=== PATIENT | male | born 1960 | race Caucasian/White ===

== ENCOUNTER 2019-09-22 11:43 | Emergency (ER) | payer OTHER ==
--- NOTE | 2019-09-22 12:17 | RAD ---
Chest one view HISTORY: Chest pain. FINDINGS: Cardiac silhouette and pulmonary vasculature are unremarkable. Mediastinum is midline. Mild linear atelectasis over the left base. No lobar consolidation or evidence of pneumothorax. shelter monitor leads overlie the chest. IMPRESSION : No active cardiopulmonary abnormalities are demonstrated.
[2019-09-22 12:26] LABS: #Eosinphils 0.1 thou/uL (0.0-0.7); #Lymphocytes 2.1 thou/uL (1.20-3.40); #Monocytes 0.4 thou/uL (0.11-0.59); #Neutrophils 4.7 thou/uL (1.40-6.50); %Basophils 0.3 % (0.0-1.0); %Eosinophils 0.8 % (0.0-10.0); %Lymphocytes 28.9 % (21.0-51.0); %Monocytes 5.7 % (0.0-10.0); %Neutrophils 64.3 % (42.0-75.0); Hemoglobin 14.8 g/dL (14.0-18.0); Mean Corpuscular HGB CONC 34.7 g/dL (32.0-36.0); Mean Corpuscular Volume 89.1 fL (78.0-98.0); Mean Platelet Volume 7.5 fL (7.4-10.4); Platelet Count 166 thou/uL (130-400); RBC Distribution Width 11.7 % (11.5-14.5); Red Blood Cell (RBC) Count 4.78 mill/uL (4.70-6.10); White Blood Cell (WBC) Count 7.3 thou/uL (4.8-10.8)
[2019-09-22 12:49] LABS: ALT (SGPT) 9 U/L (8-55); AST (SGOT) 14 U/L (5-34); Albumin 4.1 g/dL (3.5-5.0); Alkaline Phosphatase 63 U/L (40-110); Anion Gap 12 mmol/L (10-20); BUN (Urea Nitrogen) 13 mg/dL (8.4-25.7); Bilirubin, Total 0.8 mg/dL (0.2-1.2); CK (CPK) 59 U/L (30-200); Calc. Creatinine Clearance 0 mL/min (70-130); Calcium 8.6 mg/dL (7.8-10.44); Carbon Dioxide 29 mmol/L (22-29); Chloride 102 mmol/L (98-107); Estimated GFR-MDRD 88; Glucose 99 mg/dL (70-105); Lipase 122 U/L (8-78); Protein, Total 6.1 g/dL (6.0-8.3); Sodium 139 mmol/L (136-145)
--- NOTE | 2019-09-25 14:08 | EKG ---
Test Reason : Blood Pressure : / mmHG Vent. Rate : 057 BPM Atrial Rate : 057 BPM P-R Int : 164 ms QRS Dur : 090 ms QT Int : 434 ms P-R-T Axes : -28 084 100 degrees QTc Int : 422 ms Sinus bradycardia Nonspecific T wave abnormality Abnormal ECG Confirmed by VENUS CAMARA ([id number]), newspaper managing editor PAUL HORNER ([id number]) on 09/25/2019 2:08:11 PM Referred By: Confirmed By:VENUS Colón
== END 2019-09-22 16:20 ==
LOC: ERS 11:43
DX: R07.9 Chest pain, unspecified (principal); J45.909 Unspecified asthma, uncomplicated; E03.9 Hypothyroidism, unspecified; I25.2 Old myocardial infarction; I10 Essential (primary) hypertension; F20.9 Schizophrenia, unspecified; F31.9 Bipolar disorder, unspecified; Z87.891 Personal history of nicotine dependence; Z79.82 Long term (current) use of aspirin; Z79.899 Other long term (current) drug therapy
CPT/HCPCS: 36415; 71045; 80053; 82550; 83690; 84484; 85025; 93005; 94760; 96360

== ENCOUNTER 2019-10-10 15:04 | Emergency (ER) | payer OTHER ==
[2019-10-10 16:14] LABS: #Lymphocytes 1.6 thou/uL (1.20-3.40); #Monocytes 0.6 thou/uL (0.11-0.59); #Neutrophils 8.7 thou/uL (1.40-6.50); %Basophils 0.4 % (0.0-1.0); %Eosinophils 0.2 % (0.0-10.0); %Lymphocytes 14.3 % (21.0-51.0); %Monocytes 5.4 % (0.0-10.0); %Neutrophils 79.7 % (42.0-75.0); Hemoglobin 14.2 g/dL (14.0-18.0); Mean Corpuscular HGB CONC 32.9 g/dL (32.0-36.0); Mean Corpuscular Hemoglobin 29.6 pg (27.0-31.0); Mean Platelet Volume 7.3 fL (7.4-10.4); Platelet Count 151 thou/uL (130-400); RBC Distribution Width 11.8 % (11.5-14.5); Red Blood Cell (RBC) Count 4.81 mill/uL (4.70-6.10); White Blood Cell (WBC) Count 10.9 thou/uL (4.8-10.8)
[2019-10-10 16:35] LABS: ALT (SGPT) 22 U/L (8-55); AST (SGOT) 20 U/L (5-34); Albumin 3.9 g/dL (3.5-5.0); Alkaline Phosphatase 62 U/L (40-110); Anion Gap 15 mmol/L (10-20); BUN (Urea Nitrogen) 20 mg/dL (8.4-25.7); Bilirubin, Total 0.5 mg/dL (0.2-1.2); Calc. Creatinine Clearance 0 mL/min (70-130); Calcium 9.2 mg/dL (7.8-10.44); Carbon Dioxide 24 mmol/L (22-29); Chloride 101 mmol/L (98-107); Estimated GFR-MDRD 83; Globulin 3.1 g/dL (2.4-3.5); Glucose 102 mg/dL (70-105); Potassium 3.5 mmol/L (3.5-5.1); Sodium 136 mmol/L (136-145)
[2019-10-10] MEDS ORDERED: Sodium Chloride 0.9% 100 ML ONE (16:43)
[2019-10-10] MEDS ORDERED: Cefepime 2 GM VIAL ONE (16:43)
[2019-10-10] MEDS ORDERED: Vancomycin 1 GM/200 ML BAG ONE (16:58)
--- NOTE | 2019-10-10 17:13 | ULT ---
RIGHT LOWER EXTREMITY VENOUS ULTRASOUND: 10/10/19 COMPARISON: None. HISTORY: Right lower extremity pain and edema. TECHNIQUE: Multiplanar gonzalez sale and color Doppler images were obtained in a right lower extremity venous ultras ound. Spectral analysis of the Doppler waveforms were performed. FINDINGS: The right common femoral vein, profunda femoral vein, superficial femoral vein and popliteal vein are normal in appearance without visible thrombus. These vessels demonstrate normal compression, flow an d augmentation. The posterior tibial vein an greater saphenous vein are also patent. IMPRESSION: No evidence of DVT. POS: ED
[2019-10-10 18:09] LABS: Bacteria/HPF None Seen HPF (None Seen); Bilirubin Negative (Negative); Blood, Urine 1+ (Negative); Clarity Clear (Clear); Glucose, Urine (Dipstick) Normal (Negative); Leukocyte Negative Leu/uL (Negative); Nitrite Negative (Negative); Protein, Urine (Dipstick) Negative (Neg-Trace); Squamous Epithelial None Seen HPF (0-3); Urobilinogen Normal mg/dL (Less than 2); WBC/HPF 0-3 HPF (0-3)
[2019-10-10] MEDS ORDERED: Clindamycin/D5W 900 mg/50 ml Premix Bag ONE (18:51)
[2019-10-10] MEDS ORDERED: Acetaminophen 500 MG TAB ONE (23:27)
[2019-10-11] MEDS ORDERED: Terazosin HCl 5 MG CAP PO SCH (21:00)
== END 2019-10-11 01:45 | disposition short-term general hospital (02) ==
LOC: ERS 15:04
DX: A41.9 Sepsis, unspecified organism (principal); L03.115 Cellulitis of right lower limb; I10 Essential (primary) hypertension; I25.2 Old myocardial infarction; F31.9 Bipolar disorder, unspecified; F25.9 Schizoaffective disorder, unspecified; E03.9 Hypothyroidism, unspecified; J45.909 Unspecified asthma, uncomplicated; Z79.82 Long term (current) use of aspirin; Z79.899 Other long term (current) drug therapy; Z87.891 Personal history of nicotine dependence
CPT/HCPCS: 36415; 36416; 80053; 81003; 81015; 83605; 85025; 87040; 87635; 96360; 96361; 96365; 96367; J0692; J3370; J3490; U0003

== ENCOUNTER 2020-01-13 16:50 | Inpatient (IN) | payer OTHER ==
[2020-01-13] MEDS ORDERED: Rocuronium Bromide 10 MG/ML (10ML VIAL) ONE (17:00)
[2020-01-13] MEDS ORDERED: Diltiazem 125 MG/25 ML ONE (17:09)
--- NOTE | 2020-01-13 17:29 | RAD ---
Exam: Chest one view HISTORY:Dyspnea. Chest pain. Status post intubation. Comparison: 09/22/2019 FINDINGS: Cardiac silhouette: Normal Aorta: Unremarkable Pulmonary vessels: Normal Costophrenic angles: Clear LUNGS: No masses or consolidation. Chronic interstitial changes are noted. Lines and tubes: Nasogastric tube extends beyond the diaphragm. Endotracheal tube demonstrates main s tem bronchus intubation. Pneumothorax: None Osseous abnormalities: None IMPRESSION: 1. Right mainstem bronchus intubation. Endotracheal tube should be retracted approximately 3.5 cm.
--- NOTE | 2020-01-13 17:30 | RAD ---
Exam: 1 view abdomen HISTORY: NG tube placement. CPR. FINDINGS: Nonspecific bowel gas pattern. No suspicious densities in the visualized abdomen. Nonspecif ic bowel gas pattern. IMPRESSION: Nonspecific bowel gas pattern. Results of the abdomen radiograph and chest radiograph discussed with Dr. Eli 01/13/2020 at 5:27 PM Code CR
[2020-01-13] MEDS ORDERED: fentaNYL Citrate/PF 2,000 MCG in Sodium Chloride 0.9% 60 ML IV SCH (17:36)
[2020-01-13 17:41] LABS: #Lymphocytes 2.1 thou/uL (1.20-3.40); #Monocytes 0.6 thou/uL (0.11-0.59); #Neutrophils 4.8 thou/uL (1.40-6.50); %Eosinophils 0.7 % (0.0-10.0); %Lymphocytes 27.3 % (21.0-51.0); %Monocytes 7.8 % (0.0-10.0); %Neutrophils 64.3 % (42.0-75.0); Hemoglobin 14.3 g/dL (14.0-18.0); Mean Corpuscular HGB CONC 34.7 g/dL (32.0-36.0); Mean Corpuscular Hemoglobin 30.8 pg (27.0-31.0); Mean Corpuscular Volume 88.7 fL (78.0-98.0); Mean Platelet Volume 7.2 fL (7.4-10.4); Platelet Count 184 thou/uL (130-400); RBC Distribution Width 12.1 % (11.5-14.5); Red Blood Cell (RBC) Count 4.63 mill/uL (4.70-6.10); White Blood Cell (WBC) Count 7.5 thou/uL (4.8-10.8)
[2020-01-13 17:48] LABS: Actual Bicarbonate (HCO3a) 22.8 mEq/L (22-28); Analyzer IN Cardio ER; Base Excess (BEa) -2.6 mEq/L (-2.0 to +3.0); CO2 Tension 41.3 mmHg (35.0-45.0); Calcium, Ionized (arterial) 1.09 mmol/L (1.12-1.30); Carboxyhemoglobin (COHb) 0.3 gm% (0.0-3.0); Hemoglobin (Hb) 14.2 g/dL (14.0-18.0); O2 Tension (PaO2), arterial 88.9 mmHg (80.0-100.0); Potassium - ABG Lab 2.86 mmol/L (3.70-5.30); pH, Arterial 7.36 (7.35-7.45)
[2020-01-13 17:50] LABS: ALV-art Gradient 215.975 (0-20); Puncture Site LRA
[2020-01-13 17:56] LABS: ALT (SGPT) 22 U/L (8-55); AST (SGOT) 21 U/L (5-34); Alkaline Phosphatase 66 U/L (40-110); Anion Gap 16 mmol/L (10-20); BUN (Urea Nitrogen) 12 mg/dL (8.4-25.7); Bilirubin, Total 0.2 mg/dL (0.2-1.2); Calc. Creatinine Clearance 0 mL/min (70-130); Calcium 8.5 mg/dL (7.8-10.44); Carbon Dioxide 24 mmol/L (22-29); Chloride 103 mmol/L (98-107); Estimated GFR-MDRD 73; Globulin 2.6 g/dL (2.4-3.5); Glucose 205 mg/dL (70-105); Lipase 21 U/L (8-78); Protein, Total 6.6 g/dL (6.0-8.3); Sodium 140 mmol/L (136-145)
[2020-01-13 18:05] LABS: Potassium 2.8 mmol/L (3.5-5.1)
[2020-01-13 18:14] LABS: CKMB 3.9 ng/mL (0-6.6)
[2020-01-13] MEDS ORDERED: Aspirin 300 MG Suppository ONE ×2 (18:31→18:36)
[2020-01-13] MEDS ORDERED: Potassium Chloride 40 MEQ in Sodium Chloride 0.9% 250 ML 250 ML IVPB SCH (18:45)
--- NOTE | 2020-01-13 19:19 | RAD ---
Exam: Chest one view HISTORY:Repositioning of endotracheal tube Comparison: 01/13/2020 at 5:16 PM FINDINGS: Lines and tubes: Interval retraction of the endotracheal tube now terminates at the level of clavicle s. Otherwise, no change. IMPRESSION: Interval repositioning of endotracheal tube.
[2020-01-13 19:47] LABS: SARS-CoV-2 NAA Rapid Test DETECTED (NotDetected)
[2020-01-13] MEDS ORDERED: Acetaminophen 650 MG Suppository PR PRN (20:11)
[2020-01-13] MEDS ORDERED: Propofol 1,000 MG/100 ML VIAL IV ONE (20:18)
--- NOTE | 2020-01-13 20:18 | PDOC.HHP ---
Hospitalist HPI - History of Present Illness s/p cardiac arrest History of Present Illness: most of the history obtain from emr and ed records, during my evaluation patient was sedated and intubated, no family members were present at the moment of my evaluation. Case of an 59y/o male with pmnhx of bronchial asthma, bipolar, depression schizoaffective disorder, hepc, hypothyroidism, L side hearing deficit, htn and cad who comes to hospital from nursing home after an episode of chest pain with subsequent cardiac arrest. EMS reports that they received a report that the patient stated that he had severe chest pain, and then passed out. There is a report that CPR was performed, and that 3 rounds of CPR were performed. The report continues that spontaneous circulation was regained. EMS reports what appears to be A. fib with RVR in route. They state that they did try to electrically cardiovert the patient with 100 J, but that this did not produce any results. at the ED Cardizem was started and during my evaluation pt was with adequate stable vital signs, with nsr in the 90s and sedated Hospitalist ROS - Review of Systems ROS unobtainable: due to mental status Hospitalist History - Past Surgical History Other Surgical History: stent - Family History Other Family History: unable to asses - Social History Other Social History: unable to asses - Exam General - other findings: sedated on MV Eye: PERRL, anicteric sclera ENT: normocephalic atraumatic, no oropharyngeal lesions Neck: supple, symmetric, no JVD Heart: RRR, no murmur, no gallops Respiratory: CTAB, no wheezes, no rales Gastrointestinal: soft, non-tender, non-distended Extremities: no cyanosis, no clubbing, no edema Skin: normal turgor, no lesions, no rashes Neurological: cranial nerve grossly intact Musculoskeletal: normal tone Psychiatric - other findings: sedated Hospitalist Results - Labs Result Diagrams: 01/13/20 17:00 01/13/20 17:00 Lab results: WBC 7.5 thou/uL (4.8-10.8) 01/13/20 17:00 Hgb 14.3 g/dL (14.0-18.0) 01/13/20 17:00 Hct 41.1 % (42.0-52.0) L 01/13/20 17:00 MCV 88.7 fL (78.0-98.0) 01/13/20 17:00 Plt Count 184 thou/uL (130-400) 01/13/20 17:00 Neutrophils % 64.3 % (42.0-75.0) 01/13/20 17:00 ABG pH 7.36 (7.35-7.45) 01/13/20 17:45 ABG pCO2 41.3 mmHg (35.0-45.0) 01/13/20 17:45 ABG pO2 88.9 mmHg (80.0-100.0) 01/13/20 17:45 Sodium 140 mmol/L (136-145) 01/13/20 17:00 Potassium 2.8 mmol/L (3.5-5.1) L* 01/13/20 17:00 Chloride 103 mmol/L (98-107) 01/13/20 17:00 Carbon Dioxide 24 mmol/L (22-29) 01/13/20 17:00 BUN 12 mg/dL (8.4-25.7) 01/13/20 17:00 Creatinine 1.05 mg/dL (0.7-1.3) 01/13/20 17:00 Glucose 205 mg/dL (70-105) H 01/13/20 17:00 Lactic Acid 4.1 mmol/L (0.5-2.2) H* 01/13/20 18:30 Calcium 8.5 mg/dL (7.8-10.44) 01/13/20 17:00 Total Bilirubin 0.2 mg/dL (0.2-1.2) 01/13/20 17:00 AST 21 U/L (5-34) 01/13/20 17:00 ALT 22 U/L (8-55) 01/13/20 17:00 Alkaline Phosphatase 66 U/L (40-110) 01/13/20 17:00 CK-MB (CK-2) 3.9 ng/mL (0-6.6) 01/13/20 17:00 Troponin I 0.029 ng/mL (< 0.028) H 01/13/20 17:00 Serum Total Protein 6.6 g/dL (6.0-8.3) 01/13/20 17:00 Albumin 4.0 g/dL (3.5-5.0) 01/13/20 17:00 Lipase 21 U/L (8-78) 01/13/20 17:00 Hospitalist H&P A/P - Problem (1) Sudden cardiac arrest Code(s): I46.9 - CARDIAC ARREST, CAUSE UNSPECIFIED Status: Acute (2) Respiratory failure requiring intubation Code(s): J96.90 - RESPIRATORY FAILURE, UNSP, UNSP W HYPOXIA OR HYPERCAPNIA Status: Acute (3) COVID-19 Code(s): U07.1 - COVID-19 Status: Acute (4) Atrial fibrillation with RVR Code(s): I48.91 - UNSPECIFIED ATRIAL FIBRILLATION Status: Acute (5) Hypokalemia Code(s): E87.6 - HYPOKALEMIA Status: Acute (6) Hypothyroidism Code(s): E03.9 - HYPOTHYROIDISM, UNSPECIFIED Status: Acute (7) HTN (hypertension) Code(s): I10 - ESSENTIAL (PRIMARY) HYPERTENSION Status: Acute (8) CAD (coronary artery disease) Code(s): I25.10 - ATHSCL HEART DISEASE OF [place] CORONARY ARTERY W/O ANG PCTRS Status: Acute - Plan Plan: 59y/o male with the stated pmhx who comes after cardiac arrest, covid + s/p cardiac arrest - icu admit - serial troponins, elevated first one i expect this to continue to increase - cardiology consult - cardiac monitoring - 2d echo covid 19 - positive test - on MV - on rocephin + azithromycin - dexamethazone 6 ivd - f/u inflammation markers respiratory failure requiring intubation - asset protection detective consulted - f/u abgs - wean as tolerated - sedation protocol atrial fibrillation in rvr - s/p cardioversion x1 - on cardizem drio - followe serial troponins - on cardizem drip - tsh - full AC w lovenox hypokalemia - replace electrolites - check mg
[2020-01-13] MEDS ORDERED: Sodium Chloride 0.9% 1,000 ML IV SCH ×2 (20:33→23:59)
[2020-01-13] MEDS ORDERED: Fentanyl BOLUS 250 ML IVPB PRN (20:34)
[2020-01-13] MEDS ORDERED: DISCONTINUE PREVIOUS NARCOTIC PAIN MEDICATIONS AND BENZODIAZEPINES FS SCH (20:34)
[2020-01-13] MEDS ORDERED: Propofol BOLUS 1,000 MG/100 ML VIAL IV PRN (20:34)
[2020-01-13 21:29] LABS: Troponin I 0.208 ng/mL (< 0.028)
[2020-01-13] MEDS: Sodium Chloride 0.9% 1,000 ML IV SCH (21:40)
[2020-01-13] MEDS: cefTRIAXone\\ROCEPHIN 2 GM in Sodium Chloride 0.9% 100 ML IVPB SCH (21:59)
[2020-01-13] MEDS: Famotidine/PF 20 mg/2ml Vial SLOW IVP SCH (21:59)
[2020-01-13 22:00] LABS: Lactic Acid 5.8 mmol/L (0.5-2.2)
[2020-01-13] MEDS ORDERED: Diltiazem HCl 125 MG, Admixture Fee 1 EACH in Sodium Chloride 0.9% 100 ML IVPB SCH (22:00)
[2020-01-13] MEDS: Azithromycin 500 MG in Sodium Chloride 0.9% 250 ML 250 ML IVPB SCH (22:00)
[2020-01-13] MEDS: Lorazepam 2 MG/ML VIAL SLOW IVP PRN (23:16)
[2020-01-13 23:53] LABS: Troponin I 0.288 ng/mL (< 0.028)
[2020-01-14 04:03] LABS: CRP (Inflammatory) 1.4 mg/dL (= or < 0.5); Magnesium 1.6 mg/dL (1.6-2.6)
[2020-01-14 04:07] LABS: Band 7 % (5-11); Hemoglobin 12.5 g/dL (14.0-18.0); Lymphocytes 17 % (21-51); MDiff Complete? YES; Mean Corpuscular Hemoglobin 30.3 pg (27.0-31.0); Mean Corpuscular Volume 89.2 fL (78.0-98.0); Mean Platelet Volume 7.1 fL (7.4-10.4); Monocytes 9 % (0-10); Neutrophil 67 % (42-75); Platelet Count 211 thou/uL (130-400); Platelet Morphology Comment Appears Adequate; Red Blood Cell (RBC) Count 4.13 mill/uL (4.70-6.10); White Blood Cell (WBC) Count 8.7 thou/uL (4.8-10.8)
[2020-01-14 04:08] LABS: ALT (SGPT) 19 U/L (8-55); AST (SGOT) 17 U/L (5-34); Albumin 3.4 g/dL (3.5-5.0); Alkaline Phosphatase 54 U/L (40-110); Anion Gap 13 mmol/L (10-20); BUN (Urea Nitrogen) 14 mg/dL (8.4-25.7); Bilirubin, Total 0.4 mg/dL (0.2-1.2); Calc. Creatinine Clearance 140 mL/min (70-130); Calcium 7.6 mg/dL (7.8-10.44); Carbon Dioxide 23 mmol/L (22-29); Chloride 111 mmol/L (98-107); Estimated GFR-MDRD Greater than 90; Globulin 2.2 g/dL (2.4-3.5); Glucose 99 mg/dL (70-105); Potassium 3.7 mmol/L (3.5-5.1); Protein, Total 5.6 g/dL (6.0-8.3); Sodium 143 mmol/L (136-145)
[2020-01-14 06:37] LABS: Lactic Acid 1.1 mmol/L (0.5-2.2)
[2020-01-14] MEDS: Sodium Chloride 0.9% 1,000 ML IV SCH ×2 (08:31→17:51)
[2020-01-14] MEDS: Dexamethasone 4 mg/ml Vial SLOW IVP SCH (08:31)
[2020-01-14] MEDS: Enoxaparin Sodium 100 MG/ML SYRINGE SC SCH ×2 (08:31→21:23)
[2020-01-14] MEDS: Famotidine/PF 20 mg/2ml Vial SLOW IVP SCH ×2 (08:31→21:23)
[2020-01-14 08:57] LABS: Actual Bicarbonate (HCO3a) 22.8 mEq/L (22-28); Base Excess (BEa) -0.7 mEq/L (-2.0 to +3.0); CO2 Tension 34.3 mmHg (35.0-45.0); Calcium, Ionized (arterial) 1.06 mmol/L (1.12-1.30); Carboxyhemoglobin (COHb) 0.1 gm% (0.0-3.0); Hemoglobin (Hb) 12.8 g/dL (14.0-18.0); O2 Tension (PaO2), arterial 97.8 mmHg (80.0-100.0); Potassium - ABG Lab 3.64 mmol/L (3.70-5.30); pH, Arterial 7.44 (7.35-7.45)
[2020-01-14 08:59] LABS: ALV-art Gradient 144.525 (0-20); Puncture Site RBA
[2020-01-14] MEDS ORDERED: Enoxaparin Sodium 40 MG/0.4 ML SYRINGE SC SCH (09:00)
[2020-01-14 09:39] LABS: Bilirubin Moderate (Negative); Blood, Urine Negative (Negative); Glucose, Urine (Dipstick) Negative (Negative); Ketone, Urine Trace mg/dL (Negative); Leukocyte Negative (Negative); Nitrite Negative (Negative); Protein, Urine (Dipstick) 30 mg/dL (Neg-Trace); Specific Gravity, Urine 1.025 (1.005-1.030)
[2020-01-14 09:45] LABS: Clarity Slightly Cloudy (Clear)
[2020-01-14 09:49] LABS: Bacteria/HPF 1+ HPF (None Seen); Squamous Epithelial 0-3 HPF (0-3)
--- NOTE | 2020-01-14 15:19 | CON ---
DATE OF CONSULTATION: 01/14/2020 REASON FOR CONSULTATION: Cardiac arrest. HISTORY OF PRESENT ILLNESS: Mr. Clark is a 59-year-old white gentleman, who comes to the hospital for a cardiac arrest. He is an inmate and apparently was in [facility], complained of an episode of chest pain and eventually had a cardiac arrest. EMS was called and CPR was performed, about 3 rounds of CPR and regained spontaneous circulation. He was apparently in atrial fibrillation with RVR when he was brought in and was given a cardioversion at 100 joules without any success. On my evaluation, he remained sedated and intubated. Unable to provide any history. He is in sinus rhythm. PAST MEDICAL HISTORY: 1. Bronchial asthma. 2. Hypothyroidism. 3. Left hearing deficit. 4. Hepatitis C. 5. Hypertension. 6. Bipolar disorder. 7. Schizoaffective disorder. 8. Depression. PAST SURGICAL HISTORY: 1. Bilateral ear surgeries. 2. History of cardiac stent, unknown details for this. OUTPATIENT MEDICATIONS: 1. Diphenhydramine. 2. Venlafaxine 75 mg a day. 3. Terazosin 10 mg at bedtime. 4. Omeprazole 20 mg a day. 5. Naproxen 500 mg b.i.d. 6. Metoprolol succinate 25 mg b.i.d. 7. Loratadine. 8. Levothyroxine 50 mcg a day. 9. Lanolin oil. 10. Haldol 5 mg b.i.d. 11. Flovent 110 mcg one puff inhalation b.i.d. 12. Aspirin 81 a day. 13. Albuterol inhaler p.r.n. ALLERGIES: NO KNOWN DRUG ALLERGIES. SOCIAL HISTORY: Former drug user. Uses methamphetamines and prescription medications. Alcohol every day. Former tobacco user. REVIEW OF SYSTEMS: Unobtainable as the patient is sedated and intubated. PHYSICAL EXAMINATION: VITAL SIGNS: Temperature 99.8, pulse 69, respiratory rate 10, saturating 100% on 40% FiO2, blood pressure 103/72. GENERAL: Sedated, intubated. LUNGS: Clear to auscultation. CARDIOVASCULAR: Regular rate. No murmurs. ABDOMEN: Soft. EXTREMITIES: No edema. LABORATORY DATA: Laboratory work was reviewed. White count of 7.5, hemoglobin of 14.3 down to 12.5, hematocrit of 41, platelet count of 184. Coags; D-dimer was 1.73. ABG was reviewed. Chemistries were reviewed. LDH was 240. CRP was 1.4. BNP was 70. Albumin of 3.4. Troponin has been indeterminate x3 of 0.02, 0.20, and 0.28. UA showed 30 protein, trace ketones, 1+ bacteria, and COVID-19 PCR was positive. Chest x-ray was reviewed. ASSESSMENT: 1. Oah-xj-ctanlmxn cardiac arrest. 2. Chest pain just before [id number] arrest. 3. History of stenting, unclear where the stent is. This could be any type of stenting. It could be cardiac stenting, biliary stenting. It could be renal stenting, it could be carotid stenting. It is unclear at this point. I would have to assume that it is a coronary stent; however, this is difficult to say, we will try to get records. 4. COVID-19 acute infection. PLAN: 1. His cardiac arrest could have been related to a coronary event; however, I would expect his troponin to be a lot higher if that would be the case. Pulmonary embolism is a concern with COVID-19 as well as an elevated D-dimer. This brings the possibility of a PEA arrest from an acute PE that would chest pain. He is currently getting full dose Lovenox. We will continue for now to minimize infection. We would hold off on CT angio at this time. If we need to do it in the future, we will certainly do so. 2. We will get an echocardiogram to assess LV function and valvular structures. 3. We will otherwise continue supportive care. 4. Neurologic recovery is going to dictate the aggressiveness of our care. Thank you for letting us participate in the care of your patient. 45 minutes of critical care time. Job ID: [id number]
--- NOTE | 2020-01-14 16:42 | CON ---
DATE OF CONSULTATION: 01/14/2020 HISTORY OF PRESENT ILLNESS: Blayne Clark is a 59-year-old gentleman from the [facility], who presented last night with cardiac arrest. He was intubated on the vent. Prolonged CPR was done as per the notes. He has been in the hospital before, at least in the ER. This morning he is in the ICU intubated on the vent, sedation on-board. When I went to see him, he was awake and responsive. Denies any pain or discomfort. The notes from the CPR, three rounds of CPR performed, spontaneous circulation was gained, apparently was in atrial fibrillation with RVR and tried to convert him with 100 joules. PAST MEDICAL HISTORY: Apparently pertinent for hypothyroidism, asthma, hepatitis C, previous myocardial infarction, previous hypertension, previous surgery for his ears, previous cardiac stent. He is bipolar, has depression, and is schizophrenic. He is a previous substance abuser and a drinker, tobacco abuse. MEDICATIONS: His medicine at this time from the [facility] system includes; 1. Benadryl. 2. Venlafaxine 75. 3. Terazosin 10. 4. Omeprazole 20. 5. Naprosyn. 6. Toprol 25. 7. Loratadine. 8. Synthroid 50. 9. Haldol. 10. Flovent. Presently on; 1. Ceftriaxone. 2. Cardizem. 3. Lovenox. REVIEW OF SYSTEMS: Unobtainable. PHYSICAL EXAMINATION: GENERAL: He is awake and responsive, moves all 4 extremities. VITAL SIGNS: Blood pressure 89/64, pulse 72, saturations 100%, and temperature 98. CHEST: Reveals no wheezing and no crackles. CARDIAC: Normal S1 and S2. No gallops. ABDOMEN: No masses. LABORATORY DATA: White count 8000, H and H 12 and 36, and platelet count 211. A pO2 of 97, pCO2 of 34%, pH of 7.44, on a rate of 20. His lytes are normal. C-reactive 1.4. BNP is normal. X-ray is clear. Rapid serology,which surprisingly was positive. He had one done four days ago, which was apparently negative. IMPRESSION: Status post cardiopulmonary arrest secondary to supraventricular tachycardia, known coronary disease, known bipolar disorder, hypothyroidism. PLAN: Input from Cardiology. More than likely, we will wean and extubate in the next 24 to 48 hours. CRITICAL CARE TIME: This was 45-minute critical care time. Job ID: [id number]
[2020-01-14] MEDS: Lorazepam 2 MG/ML VIAL SLOW IVP PRN ×3 (18:30→22:50)
[2020-01-14] MEDS: cefTRIAXone\\ROCEPHIN 2 GM in Sodium Chloride 0.9% 100 ML IVPB SCH (21:22)
[2020-01-14] MEDS: Azithromycin 500 MG in Sodium Chloride 0.9% 250 ML 250 ML IVPB SCH (21:23)
[2020-01-14] MEDS: Propofol 1,000 MG/100 ML VIAL IV PRN (21:23)
[2020-01-15] MEDS: Lorazepam 2 MG/ML VIAL SLOW IVP PRN ×5 (02:50→16:55)
[2020-01-15] MEDS: Sodium Chloride 0.9% 1,000 ML IV SCH ×3 (03:32→22:38)
[2020-01-15] MEDS: Propofol 1,000 MG/100 ML VIAL IV PRN ×4 (03:32→22:38)
[2020-01-15] MEDS: Morphine 2 MG/ML VIAL SLOW IVP PRN (04:12)
[2020-01-15] MEDS: Dexamethasone 4 mg/ml Vial SLOW IVP SCH (08:03)
[2020-01-15] MEDS: Famotidine/PF 20 mg/2ml Vial SLOW IVP SCH ×2 (08:03→19:47)
[2020-01-15] MEDS: Enoxaparin Sodium 100 MG/ML SYRINGE SC SCH ×2 (08:11→19:47)
--- NOTE | 2020-01-15 08:57 | PRG ---
DATE OF SERVICE: 01/15/2020 SUBJECTIVE: Blayne Clark is a 59-year-old gentleman, status post cardiac arrest, prolonged CPR yesterday. When his sedation was withheld he was a little bit more responsive. We are going to turn his sedation off. OBJECTIVE: VITAL SIGNS: His blood pressure is 120/80, pulse 70, respiratory rate 18. CHEST: Decreased breath sounds. No wheezing. CARDIAC: Normal S1, S2. ABDOMEN: No masses. His pO2 is 97, pCO2 is 30%, pH of 7.44. IMPRESSION: Respiratory failure, cardiac arrest, positive coronavirus. PLAN: On sedation, we will consider extubation if neurologically he is intact. Otherwise, continue Decadron, Zithromax, and ceftriaxone. One-half hour of critical time. Job ID: [id number]
--- NOTE | 2020-01-15 09:42 | RAD ---
Chest one view HISTORY: Intubated. Follow-up. COMPARISON: 01/13/2020. FINDINGS: Cardiac silhouette is magnified by projection. Pulmonary vasculature upper limits of normal and accentuated by shallow inspiration. Mediastinum is midline. Lines and tubes appear unchanged in position. No evidence of pneumothorax. Old left rib fractures. quality assurance monitor leads overlie the chest. IMPRESSION : Stable radiographic appearance of the chest.
--- NOTE | 2020-01-15 10:47 | PDOC.CPN ---
- Subjective Date: 01/15/20 Time: 10:45 Interval history: No new issues. He is more responsive without sedation. - Review of Systems ROS unobtainable: due to endotracheal tube - Objective Allergies/Adverse Reactions: Allergies Allergy/AdvReac Type Severity Reaction Status Date / Time No Known Allergies Allergy Verified 01/14/20 03:47 Visit Medications: Current Medications Acetaminophen (Tylenol) 650 mg PO Q4H PRN PRN Reason: Headache/Fever/Mild Pain (1-3) Acetaminophen (Tylenol) 650 mg [place] Q4H PRN PRN Reason: Headache/Fever/Mild Pain (1-3) Dexamethasone (Decadron) 6 mg SLOW IVP DAILY [facility] Last Admin: 01/15/20 08:03 Dose: 6 mg Enoxaparin Sodium (Lovenox) 100 mg SC 0900,2100 [facility] Last Admin: 01/15/20 08:11 Dose: 100 mg Famotidine (Pepcid) 20 mg SLOW IVP Q12HR [facility] Last Admin: 01/15/20 08:03 Dose: 20 mg Azithromycin 500 mg/ Sodium (Chloride) 250 mls @ 250 mls/hr IVPB Q24HR [facility] Last Admin: 01/14/20 21:23 Dose: 250 mls Ceftriaxone Sodium 2 gm/ (Sodium Chloride) 100 mls @ 200 mls/hr IVPB Q24HR [facility] Last Admin: 01/14/20 21:22 Dose: 100 mls Sodium Chloride (Normal Saline 0.9%) 1,000 mls @ 100 mls/hr IV .Q10H [facility] Last Admin: 01/15/20 03:32 Dose: 1,000 mls Fentanyl Citrate (Fentanyl Bolus) 250 mls @ 0 mls/hr IVPB PRN PRN PRN Reason: Breakthrough pain/agitation Stop: 02/12/20 20:34 Diltiazem HCl 125 mg/Miscellaneous Medication 1 each/ Sodium Chloride 125 mls @ 0 mls/hr IVPB INF [facility]; Protocol Last Admin: 01/13/20 22:27 Dose: 125 mls Dexmedetomidine HCl 400 mcg/ (Sodium Chloride) 100 mls @ 0 mls/hr IVPB INF [facility] ; Protocol Last Admin: 01/15/20 09:46 Dose: 100 mls Lorazepam (Ativan) 2 mg SLOW IVP Q1H PRN PRN Reason: Breakthrough agitation Stop: 02/12/20 20:34 Last Admin: 01/15/20 10:42 Dose: 2 mg Morphine Sulfate (Morphine) 2 mg SLOW IVP Q1H PRN PRN Reason: Breakthrough Pain/Agitation Stop: 02/12/20 20:34 Last Admin: 01/15/20 04:12 Dose: 2 mg Discontinue Previous Narcotic Pain Medications And Benzodiazepines 1 each FS .ONE [facility] Stop: 02/12/20 20:34 Propofol (Diprivan) 1,000 mg IV INF PRN; Protocol PRN Reason: TO ACHIEVE GOAL RASS Stop: 02/12/20 20:34 Last Admin: 01/15/20 09:46 Dose: 1,000 mg Propofol (Diprivan Bolus) 20 mg IV Q5MIN PRN PRN Reason: BREAKTHROUGH AGITATION Stop: 02/12/20 20:34 Sodium Chloride (Flush - Normal Saline) 10 ml IVF Q12HR [facility] Last Admin: 01/15/20 09:46 Dose: 10 ml Sodium Chloride (Flush - Normal Saline) 10 ml IVF PRN PRN PRN Reason: Saline Flush Vital Signs & Weight: Vital Signs Pulse Resp 01/15/20 08:34 69 01/15/20 06:00 14 01/15/20 04:00 16 01/15/20 02:56 97 01/15/20 02:00 17 01/15/20 00:00 22 H Admit Weight 214 lb Weight 214 lb 8.156 oz - Physical Exam General: no apparent distress HEENT: normocephaly Neck: supple neck Cardiac: regular rate and rhythm, tachycardia - Labs Result Diagrams: 01/14/20 03:20 01/14/20 03:20 Troponin/CKMB CK-MB (CK-2) 3.9 ng/mL (0-6.6) 01/13/20 17:00 Troponin I 0.288 ng/mL (< 0.028) H 01/13/20 23:17 - Telemetry Sinus rhythms and dysrhythmias: sinus tachycardia - Assessment/Plan Assessment/Plan: 1. Out of hospital cardiac arrest. 2. COVID-19 positive 3. Elevated troponin, mild, indeterminate. Unlikely to be ACS. PLAN: - Continue full anticoagulation for concern of PE. - Continue supportive care. - Awaiting neurologic recovery.
--- NOTE | 2020-01-15 18:51 | PDOC.HOSPP ---
- Subjective Encounter Date: 01/14/20 Encounter Time: 16:00 Subjective: pt not seen today - Objective Vital Signs & Weight: Vital Signs (12 hours) Temp Pulse Resp Pulse Ox 01/15/20 16:00 98.7 F 16 01/15/20 14:48 54 L 01/15/20 14:00 16 01/15/20 12:00 98.5 F 17 01/15/20 11:32 65 01/15/20 10:00 22 H 01/15/20 08:34 69 01/15/20 08:00 98.6 F 15 96 Weight Admit Weight 214 lb Weight 214 lb 8.156 oz Most Recent Monitor Data Heart Rate from ECG 49 NIBP 117/86 NIBP BP-Mean 96 Respiration from ECG 17 SpO2 98 I&O: 01/14/20 01/15/20 01/16/20 06:59 06:59 06:59 Intake Total 3333.1 2988 Output Total 780 1530 1770 Balance 2553.1 1458 -1770 Result Diagrams: 01/14/20 03:20 01/14/20 03:20 Hospitalist ROS - Medication Medications: Active Medications Generic Name Dose Route Start Last Admin Trade Name Freq PRN Reason Stop Dose Admin Dexamethasone 6 mg 01/14/20 09:00 01/15/20 08:03 Decadron SLOW IVP 6 mg DAILY [facility] Administration Enoxaparin Sodium 100 mg 01/14/20 09:00 01/15/20 08:11 Lovenox SC 100 mg 0900,2100 [facility] Administration Famotidine 20 mg 01/13/20 21:00 01/15/20 08:03 Pepcid SLOW IVP 20 mg Q12HR [facility] Administration Azithromycin 500 mg/ Sodium 250 mls @ 250 mls/hr 01/13/20 22:00 01/14/20 21: 23 Chloride IVPB 250 mls Q24HR [facility] Administration Ceftriaxone Sodium 2 gm/ 100 mls @ 200 mls/hr 01/13/20 21:00 01/14/20 21:22 Sodium Chloride IVPB 100 mls Q24HR [facility] Administration Sodium Chloride 1,000 mls @ 100 mls/hr 01/13/20 20:15 01/15/20 13:44 Normal Saline 0.9% IV 1,000 mls .Q10H [facility] Administration Diltiazem HCl 125 mg/ 125 mls @ 0 mls/hr 01/13/20 22:00 01/13/20 22:27 Miscellaneous Medication 1 IVPB 125 mls each/ Sodium Chloride INF [facility] Administration Protocol As Directed Dexmedetomidine HCl 400 mcg/ 100 mls @ 0 mls/hr 01/15/20 09:30 01/15/20 17:16 Sodium Chloride IVPB 100 mls INF [facility] Administration Protocol Per Protocol Lorazepam 2 mg 01/13/20 20:34 01/15/20 16:55 Ativan SLOW IVP 02/12/20 20:34 2 mg Q1H PRN Administration Breakthrough agitation Morphine Sulfate 2 mg 01/13/20 20:34 01/15/20 04:12 Morphine SLOW IVP 02/12/20 20:34 2 mg Q1H PRN Administration Breakthrough Pain/Agitation Propofol 1,000 mg 01/13/20 20:34 01/15/20 09:46 Diprivan IV 02/12/20 20:34 1,000 mg INF PRN Administration TO ACHIEVE GOAL RASS Protocol Sodium Chloride 10 ml 01/13/20 21:00 01/15/20 09:46 Flush - Normal Saline IVF 10 ml Q12HR [facility] Administration Hosp A/P (1) CAD (coronary artery disease) Code(s): I25.10 - ATHSCL HEART DISEASE OF [place] CORONARY ARTERY W/O ANG PCTRS Status: Acute (2) COVID-19 Code(s): U07.1 - COVID-19 Status: Acute (3) HTN (hypertension) Code(s): I10 - ESSENTIAL (PRIMARY) HYPERTENSION Status: Acute (4) Respiratory failure requiring intubation Code(s): J96.90 - RESPIRATORY FAILURE, UNSP, UNSP W HYPOXIA OR HYPERCAPNIA Status: Acute (5) Sudden cardiac arrest Code(s): I46.9 - CARDIAC ARREST, CAUSE UNSPECIFIED Status: Acute (6) Atrial fibrillation with RVR Code(s): I48.91 - UNSPECIFIED ATRIAL FIBRILLATION Status: Acute - Plan will continue AC. cardiology consulted. pt on steroids. pt was seen today by pulmonary
--- NOTE | 2020-01-15 19:03 | PDOC.HOSPP ---
- Subjective Encounter Date: 01/15/20 Encounter Time: 15:00 Subjective: pt intubated - Objective Vital Signs & Weight: Vital Signs (12 hours) Temp Pulse Resp Pulse Ox 01/15/20 16:00 98.7 F 16 01/15/20 14:48 54 L 01/15/20 14:00 16 01/15/20 12:00 98.5 F 17 01/15/20 11:32 65 01/15/20 10:00 22 H 01/15/20 08:34 69 01/15/20 08:00 98.6 F 15 96 Weight Admit Weight 214 lb Weight 214 lb 8.156 oz Most Recent Monitor Data Heart Rate from ECG 49 NIBP 117/86 NIBP BP-Mean 96 Respiration from ECG 17 SpO2 98 I&O: 01/14/20 01/15/20 01/16/20 06:59 06:59 06:59 Intake Total 3333.1 2988 1471 Output Total 780 1530 1830 Balance 2553.1 1458 -359 Result Diagrams: 01/14/20 03:20 01/14/20 03:20 Hospitalist ROS - Review of Systems Other: intubated - Medication Medications: Active Medications Generic Name Dose Route Start Last Admin Trade Name Freq PRN Reason Stop Dose Admin Dexamethasone 6 mg 01/14/20 09:00 01/15/20 08:03 Decadron SLOW IVP 6 mg DAILY MAYRA Administration Enoxaparin Sodium 100 mg 01/14/20 09:00 01/15/20 08:11 Lovenox SC 100 mg 0900,2100 MAYRA Administration Famotidine 20 mg 01/13/20 21:00 01/15/20 08:03 Pepcid SLOW IVP 20 mg Q12HR MAYRA Administration Azithromycin 500 mg/ Sodium 250 mls @ 250 mls/hr 01/13/20 22:00 01/14/20 21: 23 Chloride IVPB 250 mls Q24HR MAYRA Administration Ceftriaxone Sodium 2 gm/ 100 mls @ 200 mls/hr 01/13/20 21:00 01/14/20 21:22 Sodium Chloride IVPB 100 mls Q24HR MAYRA Administration Sodium Chloride 1,000 mls @ 100 mls/hr 01/13/20 20:15 01/15/20 13:44 Normal Saline 0.9% IV 1,000 mls .Q10H MAYRA Administration Diltiazem HCl 125 mg/ 125 mls @ 0 mls/hr 01/13/20 22:00 01/13/20 22:27 Miscellaneous Medication 1 IVPB 125 mls each/ Sodium Chloride INF MAYRA Administration Protocol As Directed Dexmedetomidine HCl 400 mcg/ 100 mls @ 0 mls/hr 01/15/20 09:30 01/15/20 17:16 Sodium Chloride IVPB 100 mls INF MAYRA Administration Protocol Per Protocol Lorazepam 2 mg 01/13/20 20:34 01/15/20 16:55 Ativan SLOW IVP 02/12/20 20:34 2 mg Q1H PRN Administration Breakthrough agitation Morphine Sulfate 2 mg 01/13/20 20:34 01/15/20 04:12 Morphine SLOW IVP 02/12/20 20:34 2 mg Q1H PRN Administration Breakthrough Pain/Agitation Propofol 1,000 mg 01/13/20 20:34 01/15/20 09:46 Diprivan IV 02/12/20 20:34 1,000 mg INF PRN Administration TO ACHIEVE GOAL RASS Protocol Sodium Chloride 10 ml 01/13/20 21:00 01/15/20 09:46 Flush - Normal Saline IVF 10 ml Q12HR MAYRA Administration - Exam Heart: negative: RRR, no murmur, no gallops, no rubs, normal peripheral pulses, irregular, diminshed peripheral pulses, murmur present, II/IV, III/IV Respiratory: negative: CTAB, no wheezes, no rales, no ronchi, normal chest expansion, no tachypnea, normal percussion, rales, rhonchi, tachypneic, wheezes Gastrointestinal: negative: soft, non-tender, non-distended, normal bowel sounds , no palpable masses, no hepatomegaly, no splenomegaly, no bruit, no guarding, no rigidity, tender to palpation, distended, diminished bowl sounds, voluntary guarding Extremities: negative: no cyanosis, no clubbing, no edema, 1+ LE edema, 2+ LE edema, clubbing Hosp A/P (1) CAD (coronary artery disease) Code(s): I25.10 - ATHSCL HEART DISEASE OF [place] CORONARY ARTERY W/O ANG PCTRS Status: Acute (2) COVID-19 Code(s): U07.1 - COVID-19 Status: Acute (3) HTN (hypertension) Code(s): I10 - ESSENTIAL (PRIMARY) HYPERTENSION Status: Acute (4) Respiratory failure requiring intubation Code(s): J96.90 - RESPIRATORY FAILURE, UNSP, UNSP W HYPOXIA OR HYPERCAPNIA Status: Acute (5) Sudden cardiac arrest Code(s): I46.9 - CARDIAC ARREST, CAUSE UNSPECIFIED Status: Acute (6) Atrial fibrillation with RVR Code(s): I48.91 - UNSPECIFIED ATRIAL FIBRILLATION Status: Acute - Plan will continue AC. cardiology consulted. pt on steroids. pt was seen today by pulmonary 01/14 will continue current tx, pt got agitated and was put back on sedation.
[2020-01-15] MEDS: cefTRIAXone\\ROCEPHIN 2 GM in Sodium Chloride 0.9% 100 ML IVPB SCH (19:46)
[2020-01-15] MEDS: Azithromycin 500 MG in Sodium Chloride 0.9% 250 ML 250 ML IVPB SCH (22:37)
[2020-01-16] MEDS: Propofol 1,000 MG/100 ML VIAL IV PRN ×2 (02:42→16:01)
[2020-01-16 03:39] LABS: #Lymphocytes 1.2 thou/uL (1.20-3.40); #Monocytes 0.5 thou/uL (0.11-0.59); #Neutrophils 6.9 thou/uL (1.40-6.50); %Basophils 0.1 % (0.0-1.0); %Lymphocytes 13.8 % (21.0-51.0); %Monocytes 5.9 % (0.0-10.0); %Neutrophils 80.2 % (42.0-75.0); Hemoglobin 13.7 g/dL (14.0-18.0); Mean Corpuscular HGB CONC 33.7 g/dL (32.0-36.0); Mean Corpuscular Hemoglobin 30.7 pg (27.0-31.0); Mean Corpuscular Volume 91.1 fL (78.0-98.0); Mean Platelet Volume 8.2 fL (7.4-10.4); Platelet Count 196 thou/uL (130-400); RBC Distribution Width 12.3 % (11.5-14.5); Red Blood Cell (RBC) Count 4.47 mill/uL (4.70-6.10); White Blood Cell (WBC) Count 8.6 thou/uL (4.8-10.8)
[2020-01-16 03:58] LABS: Anion Gap 11 mmol/L (10-20); BUN (Urea Nitrogen) 15 mg/dL (8.4-25.7); Calc. Creatinine Clearance 156 mL/min (70-130); Carbon Dioxide 23 mmol/L (22-29); Chloride 113 mmol/L (98-107); Estimated GFR-MDRD Greater than 90; Glucose 134 mg/dL (70-105); Sodium 143 mmol/L (136-145)
[2020-01-16 07:46] LABS: Actual Bicarbonate (HCO3a) 22.3 mEq/L (22-28); Base Excess (BEa) -2.8 mEq/L (-2.0 to +3.0); CO2 Tension 39.7 mmHg (35.0-45.0); Calcium, Ionized (arterial) 1.18 mmol/L (1.12-1.30); Carboxyhemoglobin (COHb) 0.2 gm% (0.0-3.0); Hemoglobin (Hb) 14.4 g/dL (14.0-18.0); O2 Tension (PaO2), arterial 124.4 mmHg (80.0-100.0); Potassium - ABG Lab 4.11 mmol/L (3.70-5.30); pH, Arterial 7.37 (7.35-7.45)
[2020-01-16 07:48] LABS: ALV-art Gradient 111.175 (0-20); Puncture Site RR
--- NOTE | 2020-01-16 07:57 | RAD ---
EXAM: Single view of the chest HISTORY: Ventilated patient with respiratory failure COMPARISON: 01/15/2020 FINDINGS: Single view of the chest shows an enlarged but stable cardiomediastinal silhouette. Endotr acheal tube and NG tube are unchanged in position. There is no evidence of consolidation, mass, or pleural effusion. The bones are unremarkable IMPRESSION: Stable exam
[2020-01-16] MEDS: Famotidine/PF 20 mg/2ml Vial SLOW IVP SCH ×2 (08:20→20:18)
[2020-01-16] MEDS: Dexamethasone 4 mg/ml Vial SLOW IVP SCH (08:20)
[2020-01-16] MEDS: Sodium Chloride 0.9% 1,000 ML IV SCH ×2 (08:21→18:25)
[2020-01-16] MEDS: Enoxaparin Sodium 100 MG/ML SYRINGE SC SCH ×2 (08:21→20:19)
--- NOTE | 2020-01-16 09:52 | PRG ---
DATE OF SERVICE: 01/16/2020 SUBJECTIVE: Blayne Clark is a 59-year-old gentleman, intubated in the vent on Precedex and Diprivan. The sedation was withheld. His heart rate has been running low over 54. He is on Cardizem. OBJECTIVE: VITAL SIGNS: Blood pressure 135/96, pulse rate 18, sats 100%. CHEST: Decreased breath sounds. No wheezing. CARDIAC: Normal S1 and S2. No gallops. ABDOMEN: No masses. LABORATORY DATA: White count 8000, H and H are stable, and platelet count is normal. PO2 is 124, pCO2 is . Lytes are normal. X-ray shows stable findings, cardiomegaly, no acute infiltrates. I do not see an echo report. IMPRESSION: Respiratory failure, Lawson positive pneumonia, status post cardiac arrest, prolonged intubation, and possible anoxic injury. PLAN: We are going to once again hold off sedation to see whether he is less encephalopathic. Decrease his Cardizem since he is bradycardic. Hopefully, we can try and wean him off if his agitation is less pronounced. In the meantime, nutrition, supportive care. One-half hour of critical care time. Job ID: [id number]
[2020-01-16] MEDS: Lorazepam 2 MG/ML VIAL SLOW IVP PRN ×2 (16:01→19:44)
--- NOTE | 2020-01-16 17:29 | PDOC.CPN ---
- Subjective Date: 01/16/20 Time: 17:27 Interval history: No new issues. Unable to wean from vent due to agitation. - Review of Systems ROS unobtainable: due to endotracheal tube - Objective Allergies/Adverse Reactions: Allergies Allergy/AdvReac Type Severity Reaction Status Date / Time No Known Allergies Allergy Verified 01/14/20 03:47 Visit Medications: Current Medications Acetaminophen (Tylenol) 650 mg PO Q4H PRN PRN Reason: Headache/Fever/Mild Pain (1-3) Acetaminophen (Tylenol) 650 mg [place] Q4H PRN PRN Reason: Headache/Fever/Mild Pain (1-3) Dexamethasone (Decadron) 6 mg SLOW IVP DAILY MAYRA Last Admin: 01/16/20 08:20 Dose: 6 mg Enoxaparin Sodium (Lovenox) 100 mg SC 0900,2100 MAYRA Last Admin: 01/16/20 08:21 Dose: 100 mg Famotidine (Pepcid) 20 mg SLOW IVP Q12HR MAYRA Last Admin: 01/16/20 08:20 Dose: 20 mg Azithromycin 500 mg/ Sodium (Chloride) 250 mls @ 250 mls/hr IVPB Q24HR MAYRA Last Admin: 01/15/20 22:37 Dose: 250 mls Ceftriaxone Sodium 2 gm/ (Sodium Chloride) 100 mls @ 200 mls/hr IVPB Q24HR MAYRA Last Admin: 01/15/20 19:46 Dose: 100 mls Sodium Chloride (Normal Saline 0.9%) 1,000 mls @ 100 mls/hr IV .Q10H MAYRA Last Admin: 01/16/20 08:21 Dose: 1,000 mls Fentanyl Citrate (Fentanyl Bolus) 250 mls @ 0 mls/hr IVPB PRN PRN PRN Reason: Breakthrough pain/agitation Stop: 02/12/20 20:34 Diltiazem HCl 125 mg/Miscellaneous Medication 1 each/ Sodium Chloride 125 mls @ 0 mls/hr IVPB INF MAYRA; Protocol Last Admin: 01/13/20 22:27 Dose: 125 mls Dexmedetomidine HCl 400 mcg/ (Sodium Chloride) 100 mls @ 0 mls/hr IVPB INF MAYRA ; Protocol Last Admin: 01/16/20 08:15 Dose: 100 mls Lorazepam (Ativan) 2 mg SLOW IVP Q1H PRN PRN Reason: Breakthrough agitation Stop: 02/12/20 20:34 Last Admin: 01/16/20 16:01 Dose: 2 mg Morphine Sulfate (Morphine) 2 mg SLOW IVP Q1H PRN PRN Reason: Breakthrough Pain/Agitation Stop: 02/12/20 20:34 Last Admin: 01/15/20 04:12 Dose: 2 mg Discontinue Previous Narcotic Pain Medications And Benzodiazepines 1 each FS .ONE MAYRA Stop: 02/12/20 20:34 Propofol (Diprivan) 1,000 mg IV INF PRN; Protocol PRN Reason: TO ACHIEVE GOAL RASS Stop: 02/12/20 20:34 Last Admin: 01/16/20 16:01 Dose: 1,000 mg Propofol (Diprivan Bolus) 20 mg IV Q5MIN PRN PRN Reason: BREAKTHROUGH AGITATION Stop: 02/12/20 20:34 Sodium Chloride (Flush - Normal Saline) 10 ml IVF Q12HR MAYRA Last Admin: 01/16/20 08:21 Dose: 10 ml Sodium Chloride (Flush - Normal Saline) 10 ml IVF PRN PRN PRN Reason: Saline Flush Vital Signs & Weight: Vital Signs Temp Pulse Resp BP Pulse Ox 01/16/20 16:00 98.2 F 16 01/16/20 15:16 68 147/95 H 01/16/20 14:00 17 01/16/20 13:06 50 L 135/94 H 01/16/20 12:00 98.4 F 17 01/16/20 11:01 59 L 01/16/20 10:00 18 01/16/20 08:00 98.2 F 16 01/16/20 07:33 47 L 135/96 H 01/16/20 07:21 100 01/16/20 06:00 17 Admit Weight 214 lb Weight 214 lb 8.156 oz - Physical Exam General: other (Not done due to COVID 19 infection.) - Labs Result Diagrams: 01/16/20 03:16 01/16/20 03:16 Troponin/CKMB CK-MB (CK-2) 3.9 ng/mL (0-6.6) 01/13/20 17:00 Troponin I 0.288 ng/mL (< 0.028) H 01/13/20 23:17 - Telemetry Sinus rhythms and dysrhythmias: sinus rhythm - Assessment/Plan Assessment/Plan: 1. Out of hospital cardiac arrest. 2. COVID-19 positive 3. Elevated troponin, mild, indeterminate. Unlikely to be ACS. PLAN: - Continue full anticoagulation for concern of PE. - Continue supportive care. - Echo pending.
[2020-01-16] MEDS: Morphine 2 MG/ML VIAL SLOW IVP PRN ×2 (20:18→23:33)
[2020-01-16] MEDS: cefTRIAXone\\ROCEPHIN 2 GM in Sodium Chloride 0.9% 100 ML IVPB SCH (20:37)
[2020-01-16] MEDS: Azithromycin 500 MG in Sodium Chloride 0.9% 250 ML 250 ML IVPB SCH (22:01)
[2020-01-17] MEDS: Propofol 1,000 MG/100 ML VIAL IV PRN ×2 (00:15→05:06)
[2020-01-17] MEDS: Lorazepam 2 MG/ML VIAL SLOW IVP PRN (00:25)
[2020-01-17 03:36] LABS: #Lymphocytes 1.1 thou/uL (1.20-3.40); #Monocytes 0.5 thou/uL (0.11-0.59); #Neutrophils 6.9 thou/uL (1.40-6.50); %Basophils 0.2 % (0.0-1.0); %Eosinophils 0.2 % (0.0-10.0); %Lymphocytes 12.3 % (21.0-51.0); %Monocytes 5.9 % (0.0-10.0); %Neutrophils 81.4 % (42.0-75.0); Hemoglobin 13.6 g/dL (14.0-18.0); Mean Corpuscular HGB CONC 34.5 g/dL (32.0-36.0); Mean Corpuscular Hemoglobin 31.2 pg (27.0-31.0); Mean Corpuscular Volume 90.3 fL (78.0-98.0); Mean Platelet Volume 8.6 fL (7.4-10.4); Platelet Count 190 thou/uL (130-400); RBC Distribution Width 12.3 % (11.5-14.5); Red Blood Cell (RBC) Count 4.36 mill/uL (4.70-6.10); White Blood Cell (WBC) Count 8.5 thou/uL (4.8-10.8)
[2020-01-17 03:57] LABS: Anion Gap 11 mmol/L (10-20); BUN (Urea Nitrogen) 16 mg/dL (8.4-25.7); Calc. Creatinine Clearance 160 mL/min (70-130); Carbon Dioxide 26 mmol/L (22-29); Chloride 110 mmol/L (98-107); Estimated GFR-MDRD Greater than 90; Glucose 131 mg/dL (70-105); Potassium 3.7 mmol/L (3.5-5.1); Sodium 143 mmol/L (136-145)
[2020-01-17] MEDS: Sodium Chloride 0.9% 1,000 ML IV SCH ×4 (04:52→20:03)
[2020-01-17 07:35] LABS: Actual Bicarbonate (HCO3a) 25.3 mEq/L (22-28); Base Excess (BEa) 0.4 mEq/L (-2.0 to +3.0); CO2 Tension 41.8 mmHg (35.0-45.0); Calcium, Ionized (arterial) 1.16 mmol/L (1.12-1.30); Carboxyhemoglobin (COHb) 0.4 gm% (0.0-3.0); Hemoglobin (Hb) 16.7 g/dL (14.0-18.0); O2 Tension (PaO2), arterial 91.5 mmHg (80.0-100.0); Potassium - ABG Lab 3.52 mmol/L (3.70-5.30)
[2020-01-17 08:01] LABS: Puncture Site RRAD
--- NOTE | 2020-01-17 08:31 | RAD ---
CHEST 1 VIEW: INDICATION: History of intubation. COMPARISON: Prior study dated 01/16/2020. IMPRESSION: Mild patchy opacities within the right lung base persist. Mild cardiomegaly is stable. No pleural e ffusion or pneumothorax is evident. ET tube and gastric catheter are unchanged. POS: BH
[2020-01-17] MEDS: Famotidine/PF 20 mg/2ml Vial SLOW IVP SCH ×2 (08:49→21:02)
[2020-01-17] MEDS: Enoxaparin Sodium 100 MG/ML SYRINGE SC SCH ×2 (08:50→21:02)
[2020-01-17] MEDS: Dexamethasone 4 mg/ml Vial SLOW IVP SCH (08:50)
[2020-01-17] MEDS ORDERED: DC Sedation Protocol FS ONE (09:29)
--- NOTE | 2020-01-17 10:56 | PRG ---
DATE OF SERVICE: 01/17/2020 SUBJECTIVE: Blayne Clark this morning appears to be much calmer. He was on Precedex overnight. His rate was set at 4. He was breathing adequately on his own. He is extubated. OBJECTIVE: VITAL SIGNS: His blood pressure is 1564/98, afebrile, respiratory rate 13. CHEST: Bilateral rhonchi and crackles. CARDIAC: Normal S1 and S2. No gallops. ABDOMEN: No masses. LABORATORY DATA: White count 8000, H and H 13 and 39, platelet count normal. PO2 of 91, PCO2 41, pH 7.40. Lytes are normal. Glucose 113. IMPRESSION: Status post cardiopulmonary arrest, respiratory failure, encephalopathy, history of previous tobacco, and substance abuse. PLAN: He has COVID positive virus, although he has no obvious pulmonary infiltrates. Continue antibiotics for another day. Continue anticoagulation. Possible PE pending results of the echo. He is still on Cardizem. Further input as per Cardiology. CRITICAL CARE TIME: One-half hour of critical time. Job ID: [id number]
--- NOTE | 2020-01-17 18:11 | PDOC.CPN ---
- Subjective Date: 01/17/20 Time: 18:10 Interval history: He is now extubated. No new issues. - Objective Allergies/Adverse Reactions: Allergies Allergy/AdvReac Type Severity Reaction Status Date / Time No Known Allergies Allergy Verified 01/14/20 03:47 Visit Medications: Current Medications Acetaminophen (Tylenol) 650 mg PO Q4H PRN PRN Reason: Headache/Fever/Mild Pain (1-3) Acetaminophen (Tylenol) 650 mg [place] Q4H PRN PRN Reason: Headache/Fever/Mild Pain (1-3) Dexamethasone (Decadron) 6 mg SLOW IVP DAILY MAYRA Last Admin: 01/17/20 08:50 Dose: 6 mg Enoxaparin Sodium (Lovenox) 100 mg SC 0900,2100 MAYRA Last Admin: 01/17/20 08:50 Dose: 100 mg Famotidine (Pepcid) 20 mg SLOW IVP Q12HR MAYRA Last Admin: 01/17/20 08:49 Dose: 20 mg Azithromycin 500 mg/ Sodium (Chloride) 250 mls @ 250 mls/hr IVPB Q24HR MAYRA Last Admin: 01/16/20 22:01 Dose: 250 mls Ceftriaxone Sodium 2 gm/ (Sodium Chloride) 100 mls @ 200 mls/hr IVPB Q24HR MAYRA Last Admin: 01/16/20 20:37 Dose: 100 mls Diltiazem HCl 125 mg/Miscellaneous Medication 1 each/ Sodium Chloride 125 mls @ 0 mls/hr IVPB INF MAYRA; Protocol Last Admin: 01/13/20 22:27 Dose: 125 mls Dexmedetomidine HCl 400 mcg/ (Sodium Chloride) 100 mls @ 0 mls/hr IVPB INF MAYRA ; Protocol Last Admin: 01/17/20 15:51 Dose: 100 mls Sodium Chloride (Normal Saline 0.9%) 1,000 mls @ 50 mls/hr IV .Q20H MAYRA Last Admin: 01/17/20 13:02 Dose: 1,000 mls Sodium Chloride (Flush - Normal Saline) 10 ml IVF Q12HR MAYRA Last Admin: 01/17/20 08:50 Dose: 10 ml Sodium Chloride (Flush - Normal Saline) 10 ml IVF PRN PRN PRN Reason: Saline Flush Vital Signs & Weight: Vital Signs Temp Pulse Resp Pulse Ox 01/17/20 16:00 98.1 F 01/17/20 12:00 98.4 F 97 01/17/20 08:00 16 01/17/20 07:59 93 01/17/20 07:16 97 Admit Weight 214 lb Weight 214 lb 8.156 oz - Physical Exam General: no apparent distress Neck: supple neck Cardiac: regular rate and rhythm Lungs: scattered rhonchi Abdomen: active bowel sounds Extremities: no edema - Labs Result Diagrams: 01/17/20 03:00 01/17/20 03:00 Troponin/CKMB CK-MB (CK-2) 3.9 ng/mL (0-6.6) 01/13/20 17:00 Troponin I 0.288 ng/mL (< 0.028) H 01/13/20 23:17 - Telemetry Sinus rhythms and dysrhythmias: sinus rhythm - Assessment/Plan Assessment/Plan: 1. Out of hospital cardiac arrest. 2. COVID-19 positive 3. Elevated troponin, mild, indeterminate. Unlikely to be ACS. PLAN: - Continue full anticoagulation for concern of PE. - Will need echo before discharge to assess need for lifevest.
[2020-01-17] MEDS ORDERED: Labetalol HCl 100 MG/20 ML VIAL SLOW IVP PRN (18:37)
[2020-01-17] MEDS ORDERED: Lisinopril 20 MG TAB PO SCH (19:15)
--- NOTE | 2020-01-17 19:17 | PDOC.HOSPP ---
- Subjective Encounter Date: 01/16/20 Encounter Time: 16:00 Subjective: chart reviewed - Objective Vital Signs & Weight: Vital Signs (12 hours) Temp Pulse Resp Pulse Ox 01/17/20 16:00 98.1 F 01/17/20 12:00 98.4 F 97 01/17/20 08:00 16 01/17/20 07:59 93 Weight Admit Weight 214 lb Weight 214 lb 8.156 oz Most Recent Monitor Data Heart Rate from ECG 115 NIBP 164/103 NIBP BP-Mean 123 Respiration from ECG 12 SpO2 69 I&O: 01/16/20 01/17/20 01/18/20 06:59 06:59 06:59 Intake Total 3216 3215 1008 Output Total 2245 2155 2700 Balance 971 1178 -1692 Result Diagrams: 01/17/20 03:00 01/17/20 03:00 Additional Labs: Accuchecks 01/17/20 01/16/20 05:59 23:44 POC Glucose 113 H 129 H Hospitalist ROS - Medication Medications: Active Medications Generic Name Dose Route Start Last Admin Trade Name Freq PRN Reason Stop Dose Admin Dexamethasone 6 mg 01/14/20 09:00 01/17/20 08:50 Decadron SLOW IVP 6 mg DAILY MAYRA Administration Enoxaparin Sodium 100 mg 01/14/20 09:00 01/17/20 08:50 Lovenox SC 100 mg 0900,2100 MAYRA Administration Famotidine 20 mg 01/13/20 21:00 01/17/20 08:49 Pepcid SLOW IVP 20 mg Q12HR MAYRA Administration Azithromycin 500 mg/ Sodium 250 mls @ 250 mls/hr 01/13/20 22:00 01/16/20 22: 01 Chloride IVPB 250 mls Q24HR MAYRA Administration Ceftriaxone Sodium 2 gm/ 100 mls @ 200 mls/hr 01/13/20 21:00 01/16/20 20:37 Sodium Chloride IVPB 100 mls Q24HR MAYRA Administration Diltiazem HCl 125 mg/ 125 mls @ 0 mls/hr 01/13/20 22:00 01/13/20 22:27 Miscellaneous Medication 1 IVPB 125 mls each/ Sodium Chloride INF MAYRA Administration Protocol As Directed Dexmedetomidine HCl 400 mcg/ 100 mls @ 0 mls/hr 01/15/20 09:30 01/17/20 15:51 Sodium Chloride IVPB 100 mls INF MAYRA Administration Protocol Per Protocol Sodium Chloride 1,000 mls @ 50 mls/hr 01/17/20 09:30 01/17/20 13:02 Normal Saline 0.9% IV 1,000 mls .Q20H MAYRA Administration Sodium Chloride 10 ml 01/13/20 21:00 01/17/20 08:50 Flush - Normal Saline IVF 10 ml Q12HR MAYRA Administration Hosp A/P (1) CAD (coronary artery disease) Code(s): I25.10 - ATHSCL HEART DISEASE OF [place] CORONARY ARTERY W/O ANG PCTRS Status: Acute (2) COVID-19 Code(s): U07.1 - COVID-19 Status: Acute (3) HTN (hypertension) Code(s): I10 - ESSENTIAL (PRIMARY) HYPERTENSION Status: Acute (4) Respiratory failure requiring intubation Code(s): J96.90 - RESPIRATORY FAILURE, UNSP, UNSP W HYPOXIA OR HYPERCAPNIA Status: Acute (5) Sudden cardiac arrest Code(s): I46.9 - CARDIAC ARREST, CAUSE UNSPECIFIED Status: Acute (6) Atrial fibrillation with RVR Code(s): I48.91 - UNSPECIFIED ATRIAL FIBRILLATION Status: Acute - Plan will continue AC. cardiology consulted. pt on steroids. pt was seen today by pulmonary 01/14 will continue current tx, pt got agitated and was put back on sedation. 01/15 pt intubated. He is on full dose AC. possible extubation in am.
--- NOTE | 2020-01-17 19:19 | PDOC.HOSPP ---
- Subjective Encounter Date: 01/17/20 Encounter Time: 17:00 Subjective: pt extubated today - Objective Vital Signs & Weight: Vital Signs (12 hours) Temp Pulse Resp Pulse Ox 01/17/20 16:00 98.1 F 01/17/20 12:00 98.4 F 97 01/17/20 08:00 16 01/17/20 07:59 93 Weight Admit Weight 214 lb Weight 214 lb 8.156 oz Most Recent Monitor Data Heart Rate from ECG 115 NIBP 164/103 NIBP BP-Mean 123 Respiration from ECG 12 SpO2 69 I&O: 01/16/20 01/17/20 01/18/20 06:59 06:59 06:59 Intake Total 3216 3215 1008 Output Total 2245 2155 2700 Balance 971 1060 1692 Result Diagrams: 01/17/20 03:00 01/17/20 03:00 Additional Labs: Accuchecks 01/17/20 01/16/20 05:59 23:44 POC Glucose 113 H 129 H Hospitalist ROS - Medication Medications: Active Medications Generic Name Dose Route Start Last Admin Trade Name Freq PRN Reason Stop Dose Admin Dexamethasone 6 mg 01/14/20 09:00 01/17/20 08:50 Decadron SLOW IVP 6 mg DAILY MAYRA Administration Enoxaparin Sodium 100 mg 01/14/20 09:00 01/17/20 08:50 Lovenox SC 100 mg 0900,2100 MAYRA Administration Famotidine 20 mg 01/13/20 21:00 01/17/20 08:49 Pepcid SLOW IVP 20 mg Q12HR MAYRA Administration Azithromycin 500 mg/ Sodium 250 mls @ 250 mls/hr 01/13/20 22:00 01/16/20 22: 01 Chloride IVPB 250 mls Q24HR MAYRA Administration Ceftriaxone Sodium 2 gm/ 100 mls @ 200 mls/hr 01/13/20 21:00 01/16/20 20:37 Sodium Chloride IVPB 100 mls Q24HR MAYRA Administration Diltiazem HCl 125 mg/ 125 mls @ 0 mls/hr 01/13/20 22:00 01/13/20 22:27 Miscellaneous Medication 1 IVPB 125 mls each/ Sodium Chloride INF MAYRA Administration Protocol As Directed Dexmedetomidine HCl 400 mcg/ 100 mls @ 0 mls/hr 01/15/20 09:30 01/17/20 15:51 Sodium Chloride IVPB 100 mls INF MAYRA Administration Protocol Per Protocol Sodium Chloride 1,000 mls @ 50 mls/hr 01/17/20 09:30 01/17/20 13:02 Normal Saline 0.9% IV 1,000 mls .Q20H MAYRA Administration Sodium Chloride 10 ml 01/13/20 21:00 01/17/20 08:50 Flush - Normal Saline IVF 10 ml Q12HR MAYRA Administration Hosp A/P (1) CAD (coronary artery disease) Code(s): I25.10 - ATHSCL HEART DISEASE OF [place] CORONARY ARTERY W/O ANG PCTRS Status: Acute (2) COVID-19 Code(s): U07.1 - COVID-19 Status: Acute (3) HTN (hypertension) Code(s): I10 - ESSENTIAL (PRIMARY) HYPERTENSION Status: Acute (4) Respiratory failure requiring intubation Code(s): J96.90 - RESPIRATORY FAILURE, UNSP, UNSP W HYPOXIA OR HYPERCAPNIA Status: Acute (5) Sudden cardiac arrest Code(s): I46.9 - CARDIAC ARREST, CAUSE UNSPECIFIED Status: Acute (6) Atrial fibrillation with RVR Code(s): I48.91 - UNSPECIFIED ATRIAL FIBRILLATION Status: Acute - Plan will continue AC. cardiology consulted. pt on steroids. pt was seen today by pulmonary 01/14 will continue current tx, pt got agitated and was put back on sedation. 01/15 pt intubated. He is on full dose AC. possible extubation in am. 01/16 pt extubated today. will add prn and bp meds. He will need life vest. covid positive on steroids will continue abx. full dose AC.
[2020-01-17] MEDS ORDERED: Haloperidol 5 MG TAB PO SCH (21:00)
[2020-01-17] MEDS: cefTRIAXone\\ROCEPHIN 2 GM in Sodium Chloride 0.9% 100 ML IVPB SCH (21:02)
[2020-01-17] MEDS: Terazosin HCl 5 MG CAP PO SCH (21:06)
[2020-01-17] MEDS: Azithromycin 500 MG in Sodium Chloride 0.9% 250 ML 250 ML IVPB SCH (21:59)
[2020-01-17] MEDS: Acetaminophen 325 MG TAB PO PRN (22:01)
[2020-01-18 03:31] LABS: #Lymphocytes 1.6 thou/uL (1.20-3.40); #Neutrophils 7.7 thou/uL (1.40-6.50); %Basophils 0.2 % (0.0-1.0); %Eosinophils 0.2 % (0.0-10.0); %Lymphocytes 15.7 % (21.0-51.0); %Neutrophils 73.9 % (42.0-75.0); Hemoglobin 13.3 g/dL (14.0-18.0); Mean Corpuscular HGB CONC 34.8 g/dL (32.0-36.0); Mean Corpuscular Hemoglobin 30.7 pg (27.0-31.0); Mean Corpuscular Volume 88.4 fL (78.0-98.0); Mean Platelet Volume 8.2 fL (7.4-10.4); Platelet Count 206 thou/uL (130-400); RBC Distribution Width 12.2 % (11.5-14.5); Red Blood Cell (RBC) Count 4.31 mill/uL (4.70-6.10); White Blood Cell (WBC) Count 10.4 thou/uL (4.8-10.8)
[2020-01-18 03:52] LABS: Anion Gap 12 mmol/L (10-20); BUN (Urea Nitrogen) 14 mg/dL (8.4-25.7); Calc. Creatinine Clearance 150 mL/min (70-130); Calcium 8.3 mg/dL (7.8-10.44); Carbon Dioxide 27 mmol/L (22-29); Chloride 108 mmol/L (98-107); Estimated GFR-MDRD Greater than 90; Glucose 113 mg/dL (70-105); Magnesium 1.8 mg/dL (1.6-2.6); Potassium 3.2 mmol/L (3.5-5.1); Sodium 144 mmol/L (136-145)
[2020-01-18] MEDS: Levothyroxine Sodium 50 MCG TAB PO SCH (05:24)
[2020-01-18] MEDS ORDERED: Magnesium 2 GM/50 ML 2 GM in Premix Bag 1 BAG IVPB SCH (06:15)
[2020-01-18] MEDS ORDERED: Potassium Chloride 40 MEQ in Sodium Chloride 0.9% 250 ML 250 ML IVPB SCH (07:00)
--- NOTE | 2020-01-18 07:12 | PDOC.HOSPP ---
- Subjective Encounter Date: 01/18/20 Encounter Time: 06:20 Subjective: overnight, had NSVT. Otherwise no events. This morning, complains of continued diffuse chest pressure that persisted since cardiac arrest. Otherwise no complaints. - Objective Vital Signs & Weight: Vital Signs (12 hours) Temp BP Pulse Ox 01/17/20 23:45 100 01/17/20 22:00 98.6 F 01/17/20 20:00 149/101 H 100 Weight Admit Weight 214 lb Weight 214 lb 8.156 oz Most Recent Monitor Data Heart Rate from ECG 45 NIBP 123/87 NIBP BP-Mean 99 Respiration from ECG 17 SpO2 100 I&O: 01/17/20 01/18/20 01/19/20 06:59 06:59 06:59 Intake Total 3215 1839 Output Total 2155 4400 Balance 1060 -2561 Result Diagrams: 01/18/20 03:00 01/18/20 03:00 Additional Labs: Accuchecks 01/17/20 01/17/20 22:15 16:03 POC Glucose 113 H 123 H Hospitalist ROS - Review of Systems Constitutional: denies: fever, chills, sweats Respiratory: denies: cough, dry, shortness of breath Cardiovascular: reports: chest pain. denies: palpitations, orthopnea, paroxysmal noc. dyspnea, edema Gastrointestinal: denies: nausea, vomiting - Medication Medications: Active Medications Generic Name Dose Route Start Last Admin Trade Name Freq PRN Reason Stop Dose Admin Acetaminophen 650 mg 01/13/20 20:11 01/17/20 22:01 Tylenol PO 650 mg Q4H PRN Administration Headache/Fever/Mild Pain (1-3) Dexamethasone 6 mg 01/14/20 09:00 01/17/20 08:50 Decadron SLOW IVP 6 mg DAILY MAYRA Administration Enoxaparin Sodium 100 mg 01/14/20 09:00 01/17/20 21:02 Lovenox SC 100 mg 0900,2100 MAYRA Administration Famotidine 20 mg 01/13/20 21:00 01/17/20 21:02 Pepcid SLOW IVP 20 mg Q12HR MAYRA Administration Azithromycin 500 mg/ Sodium 250 mls @ 250 mls/hr 01/13/20 22:00 01/17/20 21: 59 Chloride IVPB 250 mls Q24HR MAYRA Administration Ceftriaxone Sodium 2 gm/ 100 mls @ 200 mls/hr 01/13/20 21:00 01/17/20 21:02 Sodium Chloride IVPB 100 mls Q24HR MAYRA Administration Diltiazem HCl 125 mg/ 125 mls @ 0 mls/hr 01/13/20 22:00 01/13/20 22:27 Miscellaneous Medication 1 IVPB 125 mls each/ Sodium Chloride INF MAYRA Administration Protocol As Directed Dexmedetomidine HCl 400 mcg/ 100 mls @ 0 mls/hr 01/15/20 09:30 01/17/20 20:03 Sodium Chloride IVPB 100 mls INF MAYRA Administration Protocol Per Protocol Sodium Chloride 1,000 mls @ 50 mls/hr 01/17/20 09:30 01/17/20 20:03 Normal Saline 0.9% IV 1,000 mls .Q20H MAYRA Administration Magnesium Sulfate 2 gm/ Device 50 mls @ 50 mls/hr 01/18/20 06:15 01/18/20 06: 22 IVPB 01/18/20 08:30 50 mls NOW MAYRA Administration Levothyroxine Sodium 50 mcg 01/18/20 06:00 01/18/20 05:24 Synthroid PO 50 mcg 0600 MAYRA Administration Metoprolol Succinate 25 mg 01/17/20 21:00 01/17/20 21:02 Toprol Xl PO 25 mg BID MAYRA Administration Sodium Chloride 10 ml 01/13/20 21:00 01/17/20 21:59 Flush - Normal Saline IVF 10 ml Q12HR MAYRA Administration Terazosin HCl 10 mg 01/17/20 21:00 01/17/20 21:06 Hytrin PO 10 mg HS MAYRA Administration - Exam General Appearance: NAD, awake alert Neck: no JVD Heart: RRR, no murmur, no gallops, no rubs Heart - other findings: Telemetry reviewed, NSVT as noted at around 330am Respiratory: CTAB, no wheezes, no rales, no ronchi Respiratory - other findings: diffusely reduced breath sounds Gastrointestinal: soft, non-tender, normal bowel sounds Gastrointestinal - other findings: mildly distended Extremities: no edema Psychiatric: normal affect, normal behavior, A&O x 3 Hosp A/P - Plan #COVID pneumonia extubated 01/16; currently breathing and satting well on 2L NC #cardiac arrest #NSVT -cardiology onboard; pending echo and possibly life vest disposition: Telemetry pending primary PCCM
[2020-01-18] MEDS: Famotidine/PF 20 mg/2ml Vial SLOW IVP SCH ×2 (08:33→19:26)
[2020-01-18] MEDS: Dexamethasone 4 mg/ml Vial SLOW IVP SCH (08:33)
[2020-01-18] MEDS: Venlafaxine HCl XR 75 MG CAP PO SCH (08:33)
[2020-01-18] MEDS: Enoxaparin Sodium 100 MG/ML SYRINGE SC SCH ×2 (08:34→19:25)
[2020-01-18] MEDS: Lisinopril 20 MG TAB PO SCH (08:34)
--- NOTE | 2020-01-18 09:20 | RAD ---
PORTABLE CHEST: Date: 01/18/2020 PROVIDED CLINICAL HISTORY: Shortness of breath. FINDINGS: Comparison with 01/17/2020. Interval extubation and removal of enteric catheter. Additional significant interval change with resp ect to the prior study is not apparent. IMPRESSION: As above. POS: JETT
--- NOTE | 2020-01-18 12:08 | PDOC.CPN ---
- Subjective Date: 01/18/20 Time: 12:06 Interval history: He is doing better. Still SOB and unable to lay flat. without struggling to breathe. No chest pain. - Review of Systems General: reports: fatigue. denies: fever/chills, weight/appetite/sleep changes , night sweats Respiratory: reports: shortness of breath. denies: cough, congestion, exercise intolerance Cardiovascular: denies: chest pain, palpitation, edema, paroxysmal nocturnal dyspnea, orthopnea Gastrointestinal: denies: nausea, vomiting, diarrhea, constipation, abd pain, GI bleeding Musculoskeletal: denies: pain, tenderness, stiffness, swelling, arthritis/ arthralgias Neurological: denies: numbness, syncope, seizure, weakness - Objective Allergies/Adverse Reactions: Allergies Allergy/AdvReac Type Severity Reaction Status Date / Time No Known Allergies Allergy Verified 01/14/20 03:47 Visit Medications: Current Medications Acetaminophen (Tylenol) 650 mg PO Q4H PRN PRN Reason: Headache/Fever/Mild Pain (1-3) Last Admin: 01/17/20 22:01 Dose: 650 mg Acetaminophen (Tylenol) 650 mg CA Q4H PRN PRN Reason: Headache/Fever/Mild Pain (1-3) Dexamethasone (Decadron) 6 mg SLOW IVP DAILY [facility] Last Admin: 01/18/20 08:33 Dose: 6 mg Enoxaparin Sodium (Lovenox) 100 mg SC 0900,2100 [facility] Last Admin: 01/18/20 08:34 Dose: 100 mg Famotidine (Pepcid) 20 mg SLOW IVP Q12HR [facility] Last Admin: 01/18/20 08:33 Dose: 20 mg Azithromycin 500 mg/ Sodium (Chloride) 250 mls @ 250 mls/hr IVPB Q24HR [facility] Last Admin: 01/17/20 21:59 Dose: 250 mls Ceftriaxone Sodium 2 gm/ (Sodium Chloride) 100 mls @ 200 mls/hr IVPB Q24HR [facility] Last Admin: 01/17/20 21:02 Dose: 100 mls Diltiazem HCl 125 mg/Miscellaneous Medication 1 each/ Sodium Chloride 125 mls @ 0 mls/hr IVPB INF [facility]; Protocol Last Admin: 01/13/20 22:27 Dose: 125 mls Dexmedetomidine HCl 400 mcg/ (Sodium Chloride) 100 mls @ 0 mls/hr IVPB INF [facility] ; Protocol Last Admin: 01/17/20 20:03 Dose: 100 mls Sodium Chloride (Normal Saline 0.9%) 1,000 mls @ 50 mls/hr IV .Q20H [facility] Last Admin: 01/17/20 20:03 Dose: 1,000 mls Labetalol HCl (Normodyne) 10 mg SLOW IVP Q6H PRN PRN Reason: SBP Greater Than 180 Levothyroxine Sodium (Synthroid) 50 mcg PO 0600 [facility] Last Admin: 01/18/20 05:24 Dose: 50 mcg Lisinopril (Zestril) 20 mg PO DAILY [facility] Last Admin: 01/18/20 08:34 Dose: 20 mg Metoprolol Succinate (Toprol Xl) 25 mg PO BID [facility] Last Admin: 01/18/20 08:33 Dose: 25 mg Pantoprazole Sodium (Protonix) 40 mg PO DAILY [facility] Last Admin: 01/18/20 08:33 Dose: 40 mg Sodium Chloride (Flush - Normal Saline) 10 ml IVF Q12HR [facility] Last Admin: 01/18/20 08:35 Dose: 10 ml Sodium Chloride (Flush - Normal Saline) 10 ml IVF PRN PRN PRN Reason: Saline Flush Terazosin HCl (Hytrin) 10 mg PO HS [facility] Last Admin: 01/17/20 21:06 Dose: 10 mg Venlafaxine HCl (Effexor Xr) 75 mg PO DAILY [facility] Last Admin: 01/18/20 08:33 Dose: 75 mg Vital Signs & Weight: Vital Signs Temp BP Pulse Ox 01/18/20 12:00 98.8 F 01/18/20 08:34 126/77 01/18/20 07:29 99 01/18/20 07:00 98.7 F Admit Weight 214 lb Weight 214 lb 8.156 oz - Physical Exam General: other (Not doine due to covid 19 pnuemonia.) - Labs Result Diagrams: 01/18/20 03:00 01/18/20 03:00 Troponin/CKMB CK-MB (CK-2) 3.9 ng/mL (0-6.6) 01/13/20 17:00 Troponin I 0.288 ng/mL (< 0.028) H 01/13/20 23:17 - Telemetry Sinus rhythms and dysrhythmias: other (NSR. episodes of non sustained VT.) - Assessment/Plan Assessment/Plan: 1. Out of hospital cardiac arrest. 2. COVID-19 positive 3. Elevated troponin, mild, indeterminate. Unlikely to be ACS. 4. Dilated Cardiomyopathy EF at 30-35% 5. Non sustained VT 6. Acute on chronic systolic heart failure. 7. Hypokalemia PLAN: - Non sustained VT in the setting of low K today. Replace K. - Will start amiodarone load - Will need Lifevest before discharge - Continue BB and ACEI. - Once he is further removed from his COVID-19 pneumonia he will need further risk stratification with [facility]. Currently he would not tolerate any invasive procedures. - Will follow. - Critical Care Time Critical care time (mins): 45
--- NOTE | 2020-01-18 14:51 | PRG ---
DATE OF SERVICE: 01/18/2020 SUBJECTIVE: Mr. Clark is doing well post extubation. He is eating everything put in front of him. OBJECTIVE: VITAL SIGNS: His blood pressure is 150/81, heart rate is 101, respiratory rates in the teens. LUNGS: Unchanged. HEART: Unchanged. ABDOMEN: Unchanged. Echocardiogram done shows an ejection fraction of 30% to 35%. IMPRESSION: Congestive heart failure, clinically stable postextubation. He has severe systolic cardiomyopathy. Intake and output coming in today was negative 2561. His creatinine is 0.75. His blood pressures have been adequate, so he will probably tolerate more diuresis. We will follow. He is stable to move out of the Critical Care Unit. Job ID: [id number]
[2020-01-18] MEDS: cefTRIAXone\\ROCEPHIN 2 GM in Sodium Chloride 0.9% 100 ML IVPB SCH (19:25)
[2020-01-18] MEDS: Amiodarone 200 MG TAB PO SCH (19:25)
[2020-01-18] MEDS: Terazosin HCl 5 MG CAP PO SCH (19:25)
[2020-01-18] MEDS: Acetaminophen 325 MG TAB PO PRN (21:09)
[2020-01-18] MEDS: Azithromycin 500 MG in Sodium Chloride 0.9% 250 ML 250 ML IVPB SCH (21:10)
[2020-01-19] MEDS: Sodium Chloride 0.9% 1,000 ML IV SCH ×2 (00:11→20:36)
[2020-01-19] MEDS: Acetaminophen 325 MG TAB PO PRN ×4 (04:00→20:37)
[2020-01-19] MEDS: Levothyroxine Sodium 50 MCG TAB PO SCH (04:00)
[2020-01-19 04:05] LABS: Actual Bicarbonate (HCO3a) 28.4 mEq/L (22-28); Base Excess (BEa) 3.2 mEq/L (-2.0 to +3.0); CO2 Tension 45.4 mmHg (35.0-45.0); Calcium, Ionized (arterial) 1.13 mmol/L (1.12-1.30); Carboxyhemoglobin (COHb) 0.4 gm% (0.0-3.0); Hemoglobin (Hb) 13.6 g/dL (14.0-18.0); Potassium - ABG Lab 3.43 mmol/L (3.70-5.30); pH, Arterial 7.41 (7.35-7.45)
[2020-01-19 04:08] LABS: Puncture Site L RADIAL
[2020-01-19 05:26] LABS: #Lymphocytes 1.3 thou/uL (1.20-3.40); #Monocytes 0.7 thou/uL (0.11-0.59); #Neutrophils 5.6 thou/uL (1.40-6.50); %Basophils 0.3 % (0.0-1.0); %Eosinophils 0.3 % (0.0-10.0); %Lymphocytes 17.1 % (21.0-51.0); %Neutrophils 73.3 % (42.0-75.0); Mean Corpuscular HGB CONC 32.9 g/dL (32.0-36.0); Mean Corpuscular Hemoglobin 29.3 pg (27.0-31.0); Mean Corpuscular Volume 89.1 fL (78.0-98.0); Mean Platelet Volume 8.2 fL (7.4-10.4); Platelet Count 185 thou/uL (130-400); RBC Distribution Width 12.4 % (11.5-14.5); Red Blood Cell (RBC) Count 4.44 mill/uL (4.70-6.10); White Blood Cell (WBC) Count 7.7 thou/uL (4.8-10.8)
[2020-01-19 05:50] LABS: Anion Gap 10 mmol/L (10-20); BUN (Urea Nitrogen) 14 mg/dL (8.4-25.7); Calc. Creatinine Clearance 163 mL/min (70-130); Calcium 8.4 mg/dL (7.8-10.44); Carbon Dioxide 29 mmol/L (22-29); Chloride 106 mmol/L (98-107); Estimated GFR-MDRD Greater than 90; Glucose 104 mg/dL (70-105); Potassium 3.4 mmol/L (3.5-5.1); Sodium 142 mmol/L (136-145)
[2020-01-19] MEDS: Dexamethasone 4 mg/ml Vial SLOW IVP SCH (08:13)
[2020-01-19] MEDS: Enoxaparin Sodium 100 MG/ML SYRINGE SC SCH ×2 (08:13→20:32)
[2020-01-19] MEDS: Amiodarone 200 MG TAB PO SCH ×2 (08:15→20:32)
[2020-01-19] MEDS: Famotidine/PF 20 mg/2ml Vial SLOW IVP SCH ×2 (08:17→20:32)
[2020-01-19] MEDS: Lisinopril 20 MG TAB PO SCH (08:17)
[2020-01-19] MEDS: Venlafaxine HCl XR 75 MG CAP PO SCH (08:20)
[2020-01-19] MEDS ORDERED: Melatonin 3 MG TAB PO PRN (13:17)
[2020-01-19] MEDS ORDERED: Electrolyte Replacement Protoc 1 EACH EACH FS SCH (15:30)
--- NOTE | 2020-01-19 15:33 | PDOC.HOSPP ---
- Subjective Encounter Date: 01/19/20 Encounter Time: 08:00 Subjective: no overnight events. Complains of not being able to sleep but otherwise no complaints. Pending [facility] placement - Objective Vital Signs & Weight: Vital Signs (12 hours) Temp Pulse Resp BP Pulse Ox 01/19/20 12:20 97.7 F 74 20 110/57 L 98 01/19/20 09:06 98 01/19/20 08:15 97.6 F 77 20 137/80 98 01/19/20 07:50 98 01/19/20 05:25 99 01/19/20 04:30 97.9 F 73 24 H 162/97 H 99 Weight Admit Weight 214 lb Weight 220 lb 11.2 oz Most Recent Monitor Data Heart Rate from ECG 101 NIBP 150/81 NIBP BP-Mean 104 Respiration from ECG 15 SpO2 80 I&O: 01/18/20 01/19/20 01/20/20 06:59 06:59 06:59 Intake Total 1839 3340 Output Total 4400 2150 Balance -2561 1190 Result Diagrams: 01/19/20 05:04 01/19/20 05:04 Additional Labs: Accuchecks 01/18/20 01/18/20 21:39 17:57 POC Glucose 127 H 123 H Hospitalist ROS - Review of Systems Constitutional: denies: chills, sweats Respiratory: denies: cough, dry, shortness of breath Cardiovascular: denies: chest pain, palpitations, orthopnea Gastrointestinal: denies: nausea, vomiting, abdominal pain, diarrhea Genitourinary: denies: dysuria, frequency, hematuria - Medication Medications: Active Medications Generic Name Dose Route Start Last Admin Trade Name Freq PRN Reason Stop Dose Admin Acetaminophen 650 mg 01/13/20 20:11 01/19/20 15:00 Tylenol PO 650 mg Q4H PRN Administration Headache/Fever/Mild Pain (1-3) Amiodarone HCl 400 mg 01/18/20 21:00 01/19/20 08:15 Cordarone PO 400 mg BID [facility] Administration Dexamethasone 6 mg 01/14/20 09:00 01/19/20 08:13 Decadron SLOW IVP 6 mg DAILY [facility] Administration Enoxaparin Sodium 100 mg 01/14/20 09:00 01/19/20 08:13 Lovenox SC 100 mg 0900,2100 [facility] Administration Famotidine 20 mg 01/13/20 21:00 01/19/20 08:17 Pepcid SLOW IVP 20 mg Q12HR [facility] Administration Diltiazem HCl 125 mg/ 125 mls @ 0 mls/hr 01/13/20 22:00 01/13/20 22:27 Miscellaneous Medication 1 IVPB 125 mls each/ Sodium Chloride INF [facility] Administration Protocol As Directed Dexmedetomidine HCl 400 mcg/ 100 mls @ 0 mls/hr 01/15/20 09:30 01/17/20 20:03 Sodium Chloride IVPB 100 mls INF [facility] Administration Protocol Per Protocol Sodium Chloride 1,000 mls @ 50 mls/hr 01/17/20 09:30 01/19/20 00:11 Normal Saline 0.9% IV Not Given .Q20H [facility] Levothyroxine Sodium 50 mcg 01/18/20 06:00 01/19/20 04:00 Synthroid PO 50 mcg 0600 [facility] Administration Lisinopril 20 mg 01/18/20 09:00 01/19/20 08:17 Zestril PO 20 mg DAILY [facility] Administration Metoprolol Succinate 25 mg 01/17/20 21:00 01/19/20 08:16 Toprol Xl PO 25 mg BID [facility] Administration Pantoprazole Sodium 40 mg 01/18/20 09:00 01/19/20 08:16 Protonix PO 40 mg DAILY [facility] Administration Sodium Chloride 10 ml 01/13/20 21:00 01/19/20 08:19 Flush - Normal Saline IVF 10 ml Q12HR [facility] Administration Terazosin HCl 10 mg 01/17/20 21:00 01/18/20 19:25 Hytrin PO 10 mg HS [facility] Administration Venlafaxine HCl 75 mg 01/18/20 09:00 01/19/20 08:20 Effexor Xr PO 75 mg DAILY [facility] Administration - Exam General Appearance: NAD, awake alert Neck: no JVD Heart: RRR, no murmur, no gallops, no rubs Respiratory: CTAB, no wheezes, no rales, no ronchi Respiratory - other findings: nasal cannula not in place but breathing and satting well Extremities: no edema Psychiatric: normal affect, normal behavior, A&O x 3 Hosp A/P - Plan #COVID pneumonia extubated 01/16; currently breathing and satting well on 2L NC -onset of symptoms not known; will have to be in isolation for 10 days from the time of diagnosis (01/22) #cardiac arrest #NSVT #HFrEF NYHA II -Echo showing 30-35% -pednign life vest placement -patient will require infirmary placement due to life vest; process started by CM disposition: infirmary pending
[2020-01-19] MEDS ORDERED: Electrolyte Replacement Protocol FS PRN (16:00)
[2020-01-19] MEDS ORDERED: Polyethylene Glycol 3350 17 GM Packet PO SCH (16:45)
--- NOTE | 2020-01-19 18:15 | PDOC.CPN ---
- Subjective Date: 01/19/20 Time: 18:14 Interval history: No new issues. - Review of Systems General: denies: fever/chills, weight/appetite/sleep changes, night sweats, fatigue Respiratory: denies: cough, congestion, shortness of breath, exercise intolerance Cardiovascular: denies: chest pain, palpitation, edema, paroxysmal nocturnal dyspnea, orthopnea Gastrointestinal: denies: nausea, vomiting, diarrhea, constipation, abd pain, GI bleeding Musculoskeletal: denies: pain, tenderness, stiffness, swelling, arthritis/ arthralgias Neurological: denies: numbness, syncope, seizure, weakness - Objective Allergies/Adverse Reactions: Allergies Allergy/AdvReac Type Severity Reaction Status Date / Time No Known Allergies Allergy Verified 01/14/20 03:47 Visit Medications: Current Medications Acetaminophen (Tylenol) 650 mg PO Q4H PRN PRN Reason: Headache/Fever/Mild Pain (1-3) Last Admin: 01/19/20 15:00 Dose: 650 mg Acetaminophen (Tylenol) 650 mg [place] Q4H PRN PRN Reason: Headache/Fever/Mild Pain (1-3) Amiodarone HCl (Cordarone) [address] [facility] Last Admin: 01/19/20 08:15 Dose: 400 mg Dexamethasone (Decadron) 6 mg SLOW IVP DAILY [facility] Last Admin: 01/19/20 08:13 Dose: 6 mg Enoxaparin Sodium (Lovenox) 100 mg SC 0900,2100 [facility] Last Admin: 01/19/20 08:13 Dose: 100 mg Famotidine (Pepcid) 20 mg SLOW IVP Q12HR [facility] Last Admin: 01/19/20 08:17 Dose: 20 mg Diltiazem HCl 125 mg/Miscellaneous Medication 1 each/ Sodium Chloride 125 mls @ 0 mls/hr IVPB INF [facility]; Protocol Last Admin: 01/13/20 22:27 Dose: 125 mls Dexmedetomidine HCl 400 mcg/ (Sodium Chloride) 100 mls @ 0 mls/hr IVPB INF [facility] ; Protocol Last Admin: 01/17/20 20:03 Dose: 100 mls Sodium Chloride (Normal Saline 0.9%) 1,000 mls @ 50 mls/hr IV .Q20H [facility] Last Admin: 01/19/20 00:11 Dose: Not Given Labetalol HCl (Normodyne) 10 mg SLOW IVP Q6H PRN PRN Reason: SBP Greater Than 180 Levothyroxine Sodium (Synthroid) [address] [facility] Last Admin: 01/19/20 04:00 Dose: 50 mcg Lisinopril (Zestril) [address] [facility] Last Admin: 01/19/20 08:17 Dose: 20 mg Melatonin (Melatonin) [address] [facility] Metoprolol Succinate (Toprol Xl) [address] [facility] Last Admin: 01/19/20 08:16 Dose: 25 mg Miscellaneous Medication (Electrolyte Replacement Protocol) 0 each FS ASDIR PRN ; Protocol PRN Reason: ELECTROLYTE REPLACEMENT Pantoprazole Sodium (Protonix) [address] [facility] Last Admin: 01/19/20 08:16 Dose: 40 mg Polyethylene Glycol (Miralax) [address] [facility] Senna/Docusate Sodium (Senokot S) [address] [facility] Sodium Chloride (Flush - Normal Saline) [address] [facility] Last Admin: 01/19/20 08:19 Dose: 10 ml Sodium Chloride (Flush - Normal Saline) 10 ml IVF PRN PRN PRN Reason: Saline Flush Terazosin HCl (Hytrin) [address] [facility] Last Admin: 01/18/20 19:25 Dose: 10 mg Venlafaxine HCl (Effexor Xr) [address] [facility] Last Admin: 01/19/20 08:20 Dose: 75 mg Vital Signs & Weight: Vital Signs Temp Pulse Resp BP Pulse Ox 01/19/20 14:50 97.6 F 76 20 137/82 97 01/19/20 12:20 97.7 F 74 20 110/57 L 98 01/19/20 09:06 98 01/19/20 08:15 97.6 F 77 20 137/80 98 01/19/20 07:50 98 Admit Weight 214 lb Weight 220 lb 11.2 oz - Physical Exam General: other (not done due to Covid 19 infection.) - Labs Result Diagrams: 01/19/20 05:04 01/19/20 05:04 Troponin/CKMB CK-MB (CK-2) 3.9 ng/mL (0-6.6) 01/13/20 17:00 Troponin I 0.288 ng/mL (< 0.028) H 01/13/20 23:17 - Telemetry Sinus rhythms and dysrhythmias: other (NSR, runs of non sustained VT.) - Assessment/Plan Assessment/Plan: 1. Out of hospital cardiac arrest. 2. COVID-19 positive 3. Elevated troponin, mild, indeterminate. Unlikely to be ACS. 4. Dilated Cardiomyopathy EF at 30-35% 5. Non sustained VT 6. Acute on chronic systolic heart failure. 7. Hypokalemia PLAN: - Non sustained VT in the setting of low K today. - Continue amiodarone load at 400 mg BID for 8 more days then 200 mg daily. - Will need Lifevest before discharge - Continue BB and ACEI. - Once he is further removed from his COVID-19 pneumonia he will need further risk stratification with [facility]. Currently he would not tolerate any invasive procedures. - Will follow.
[2020-01-19] MEDS: Terazosin HCl 5 MG CAP PO SCH (20:33)
[2020-01-19] MEDS: Melatonin 3 MG TAB PO SCH (20:33)
[2020-01-19] MEDS: Senokot S 8.6-50 MG TAB PO SCH (20:33)
[2020-01-20] MEDS: Acetaminophen 325 MG TAB PO PRN ×4 (04:03→17:11)
[2020-01-20] MEDS: Levothyroxine Sodium 50 MCG TAB PO SCH (04:05)
[2020-01-20 06:27] LABS: #Lymphocytes 1.4 thou/uL (1.20-3.40); #Monocytes 0.6 thou/uL (0.11-0.59); #Neutrophils 5.4 thou/uL (1.40-6.50); %Basophils 0.4 % (0.0-1.0); %Eosinophils 0.5 % (0.0-10.0); %Lymphocytes 18.4 % (21.0-51.0); %Monocytes 7.6 % (0.0-10.0); %Neutrophils 73.2 % (42.0-75.0); Hemoglobin 13.4 g/dL (14.0-18.0); Mean Corpuscular HGB CONC 33.4 g/dL (32.0-36.0); Mean Corpuscular Hemoglobin 30.5 pg (27.0-31.0); Mean Corpuscular Volume 91.2 fL (78.0-98.0); Mean Platelet Volume 7.9 fL (7.4-10.4); Platelet Count 173 thou/uL (130-400); RBC Distribution Width 12.5 % (11.5-14.5); Red Blood Cell (RBC) Count 4.38 mill/uL (4.70-6.10); White Blood Cell (WBC) Count 7.3 thou/uL (4.8-10.8)
[2020-01-20] MEDS ORDERED: Potassium Chloride 20 MEQ TAB PO SCH ×2 (06:45→13:15)
[2020-01-20 06:48] LABS: Anion Gap 11 mmol/L (10-20); BUN (Urea Nitrogen) 17 mg/dL (8.4-25.7); Calc. Creatinine Clearance 163 mL/min (70-130); Calcium 8.5 mg/dL (7.8-10.44); Carbon Dioxide 27 mmol/L (22-29); Chloride 106 mmol/L (98-107); Estimated GFR-MDRD Greater than 90; Glucose 99 mg/dL (70-105); Potassium 3.4 mmol/L (3.5-5.1); Sodium 141 mmol/L (136-145)
--- NOTE | 2020-01-20 07:10 | CT ---
CT OF THE BRAIN WITHOUT CONTRAST: Date: 01/20/2020 COMPARISON: None. HISTORY: Fall with head trauma. Patient is on blood thinners. TECHNIQUE: Multiple contiguous axial images were obtained in a CT of the brain without contrast. FINDINGS: There are scattered hypodensities in the subcortical and periventricular white matter, likely seconda ry to small vessel ischemic disease. No large confluent infarction is seen. There is no evidence of h ydrocephalus, intracranial hemorrhage, or extra-axial fluid collection. The calvarium and overlying soft tissues are unremarkable. The visualized paranasal sinuses and masto id air cells are well aerated. IMPRESSION: No evidence of acute intracranial abnormality. POS: EAA
[2020-01-20] MEDS: Amiodarone 200 MG TAB PO SCH ×2 (07:51→20:06)
[2020-01-20] MEDS: Senokot S 8.6-50 MG TAB PO SCH ×2 (07:52→20:06)
[2020-01-20] MEDS: Lisinopril 20 MG TAB PO SCH (07:52)
[2020-01-20] MEDS: Venlafaxine HCl XR 75 MG CAP PO SCH (07:53)
[2020-01-20] MEDS: Enoxaparin Sodium 100 MG/ML SYRINGE SC SCH ×2 (07:54→20:06)
[2020-01-20] MEDS: Famotidine/PF 20 mg/2ml Vial SLOW IVP SCH ×2 (07:54→20:06)
[2020-01-20] MEDS: Dexamethasone 4 mg/ml Vial SLOW IVP SCH (07:54)
[2020-01-20 10:08] VITALS: BMI 31.6
--- NOTE | 2020-01-20 13:09 | PDOC.CPN ---
- Subjective Date: 01/20/20 Time: 13:07 Interval history: He had a all today. Hit head on soft part of recliner chair. No injuries noted and CT scan negative. - Review of Systems General: denies: fever/chills, weight/appetite/sleep changes, night sweats, fatigue Respiratory: denies: cough, congestion, shortness of breath, exercise intolerance Cardiovascular: denies: chest pain, palpitation, edema, paroxysmal nocturnal dyspnea, orthopnea Gastrointestinal: denies: nausea, vomiting, diarrhea, constipation, abd pain, GI bleeding Musculoskeletal: denies: pain, tenderness, stiffness, swelling, arthritis/ arthralgias Neurological: denies: numbness, syncope, seizure, weakness - Objective Allergies/Adverse Reactions: Allergies Allergy/AdvReac Type Severity Reaction Status Date / Time No Known Allergies Allergy Verified 01/14/20 03:47 Visit Medications: Current Medications Acetaminophen (Tylenol) 650 mg PO Q4H PRN PRN Reason: Headache/Fever/Mild Pain (1-3) Last Admin: 01/20/20 12:47 Dose: 650 mg Acetaminophen (Tylenol) 650 mg PA Q4H PRN PRN Reason: Headache/Fever/Mild Pain (1-3) Amiodarone HCl (Cordarone) 400 mg PO BID [facility] Last Admin: 01/20/20 07:51 Dose: 400 mg Dexamethasone (Decadron) 6 mg SLOW IVP DAILY [facility] Last Admin: 01/20/20 07:54 Dose: 6 mg Enoxaparin Sodium (Lovenox) 100 mg SC 0900,2100 [facility] Last Admin: 01/20/20 07:54 Dose: 100 mg Famotidine (Pepcid) 20 mg SLOW IVP Q12HR [facility] Last Admin: 01/20/20 07:54 Dose: 20 mg Diltiazem HCl 125 mg/Miscellaneous Medication 1 each/ Sodium Chloride 125 mls @ 0 mls/hr IVPB INF [facility]; Protocol Last Admin: 01/13/20 22:27 Dose: 125 mls Dexmedetomidine HCl 400 mcg/ (Sodium Chloride) 100 mls @ 0 mls/hr IVPB INF [facility] ; Protocol Last Admin: 01/17/20 20:03 Dose: 100 mls Sodium Chloride (Normal Saline 0.9%) 1,000 mls @ 50 mls/hr IV .Q20H [facility] Last Admin: 01/19/20 20:36 Dose: 1,000 mls Labetalol HCl (Normodyne) 10 mg SLOW IVP Q6H PRN PRN Reason: SBP Greater Than 180 Levothyroxine Sodium (Synthroid) 50 mcg PO 0600 [facility] Last Admin: 01/20/20 04:05 Dose: 50 mcg Lisinopril (Zestril) 20 mg PO DAILY [facility] Last Admin: 01/20/20 07:52 Dose: 20 mg Melatonin (Melatonin) 3 mg PO HS [facility] Last Admin: 01/19/20 20:33 Dose: 3 mg Metoprolol Succinate (Toprol Xl) 25 mg PO BID [facility] Last Admin: 01/20/20 07:52 Dose: 25 mg Miscellaneous Medication (Electrolyte Replacement Protocol) 0 each FS ASDIR PRN ; Protocol PRN Reason: ELECTROLYTE REPLACEMENT Pantoprazole Sodium (Protonix) 40 mg PO DAILY [facility] Last Admin: 01/20/20 07:52 Dose: 40 mg Polyethylene Glycol (Miralax) 17 gm PO DAILYPRN [facility] Senna/Docusate Sodium (Senokot S) 1 tab PO BID [facility] Last Admin: 01/20/20 07:52 Dose: 1 tab Sodium Chloride (Flush - Normal Saline) 10 ml IVF Q12HR [facility] Last Admin: 01/20/20 07:54 Dose: 10 ml Sodium Chloride (Flush - Normal Saline) 10 ml IVF PRN PRN PRN Reason: Saline Flush Terazosin HCl (Hytrin) 10 mg PO HS [facility] Last Admin: 01/19/20 20:33 Dose: 10 mg Venlafaxine HCl (Effexor Xr) 75 mg PO DAILY [facility] Last Admin: 01/20/20 07:53 Dose: 75 mg Vital Signs & Weight: Vital Signs Temp Pulse Resp BP Pulse Ox 01/20/20 12:43 97.9 F 60 20 126/83 98 01/20/20 08:50 100 01/20/20 08:05 100 01/20/20 07:50 98.0 F 72 26 H 128/83 100 01/20/20 04:21 98.2 F 60 24 H 129/70 98 01/20/20 02:57 96 Admit Weight 214 lb Weight 220 lb 11.2 oz - Physical Exam General: other (Not done due to covid 19 acitve infection.) - Labs Result Diagrams: 01/20/20 06:07 01/20/20 06:07 Troponin/CKMB CK-MB (CK-2) 3.9 ng/mL (0-6.6) 01/13/20 17:00 Troponin I 0.288 ng/mL (< 0.028) H 01/13/20 23:17 - Telemetry Sinus rhythms and dysrhythmias: sinus rhythm - Assessment/Plan Assessment/Plan: 1. Out of hospital cardiac arrest. 2. COVID-19 positive 3. Elevated troponin, mild, indeterminate. Unlikely to be ACS. 4. Dilated Cardiomyopathy EF at 30-35% 5. Non sustained VT 6. Acute on chronic systolic heart failure. 7. Hypokalemia PLAN: - Will give extra dose of potassium replacement. - Continue amiodarone load at 400 mg BID for 7 more days then 200 mg daily. - Lifevest before discharge - Continue BB and ACEI. - Once he is further removed from his COVID-19 pneumonia he will need further risk stratification with [facility]. Currently he would not tolerate any invasive procedures. - Will sign off. Please call with any questions.
--- NOTE | 2020-01-20 15:46 | PDOC.HOSPP ---
- Subjective Encounter Date: 01/20/20 Encounter Time: 08:00 Subjective: overnight, tried to get off bed and fell. Considering on anticoagulation, CT head ordered and was unremarkable. This morning, feels well and has no complaints. - Objective Vital Signs & Weight: Vital Signs (12 hours) Temp Pulse Resp BP Pulse Ox 01/20/20 12:43 97.9 F 60 20 126/83 98 01/20/20 08:50 100 01/20/20 08:05 100 01/20/20 07:50 98.0 F 72 26 H 128/83 100 01/20/20 04:21 98.2 F 60 24 H 129/70 98 Weight Admit Weight 214 lb Weight 220 lb 11.2 oz Most Recent Monitor Data Heart Rate from ECG 101 NIBP 150/81 NIBP BP-Mean 104 Respiration from ECG 15 SpO2 80 I&O: 01/19/20 01/20/20 01/21/20 06:59 06:59 06:59 Intake Total 3340 2890 Output Total 2150 1850 Balance 1190 1040 Result Diagrams: 01/20/20 06:07 01/20/20 06:07 Additional Labs: Accuchecks 01/20/20 01/20/20 01/19/20 12:43 00:21 20:46 POC Glucose 174 H 113 H 151 H 01/19/20 01/19/20 17:28 12:20 POC Glucose 147 H 160 H Hospitalist ROS - Review of Systems Constitutional: denies: chills, sweats Respiratory: denies: cough, dry, shortness of breath Cardiovascular: denies: chest pain, palpitations, orthopnea Gastrointestinal: denies: nausea, vomiting, abdominal pain - Medication Medications: Active Medications Generic Name Dose Route Start Last Admin Trade Name Freq PRN Reason Stop Dose Admin Acetaminophen 650 mg 01/13/20 20:11 01/20/20 12:47 Tylenol PO 650 mg Q4H PRN Administration Headache/Fever/Mild Pain (1-3) Amiodarone HCl 400 mg 01/18/20 21:00 01/20/20 07:51 Cordarone PO 400 mg BID [facility] Administration Dexamethasone 6 mg 01/14/20 09:00 01/20/20 07:54 Decadron SLOW IVP 6 mg DAILY [facility] Administration Enoxaparin Sodium 100 mg 01/14/20 09:00 01/20/20 07:54 Lovenox SC 100 mg 0900,2100 [facility] Administration Famotidine 20 mg 01/13/20 21:00 01/20/20 07:54 Pepcid SLOW IVP 20 mg Q12HR [facility] Administration Diltiazem HCl 125 mg/ 125 mls @ 0 mls/hr 01/13/20 22:00 01/13/20 22:27 Miscellaneous Medication 1 IVPB 125 mls each/ Sodium Chloride INF [facility] Administration Protocol As Directed Dexmedetomidine HCl 400 mcg/ 100 mls @ 0 mls/hr 01/15/20 09:30 01/17/20 20:03 Sodium Chloride IVPB 100 mls INF [facility] Administration Protocol Per Protocol Sodium Chloride 1,000 mls @ 50 mls/hr 01/17/20 09:30 01/19/20 20:36 Normal Saline 0.9% IV 1,000 mls .Q20H [facility] Administration Levothyroxine Sodium 50 mcg 01/18/20 06:00 01/20/20 04:05 Synthroid PO 50 mcg 0600 [facility] Administration Lisinopril 20 mg 01/18/20 09:00 01/20/20 07:52 Zestril PO 20 mg DAILY [facility] Administration Melatonin 3 mg 01/19/20 21:00 01/19/20 20:33 Melatonin PO 3 mg HS [facility] Administration Metoprolol Succinate 25 mg 01/17/20 21:00 01/20/20 07:52 Toprol Xl PO 25 mg BID [facility] Administration Pantoprazole Sodium 40 mg 01/18/20 09:00 01/20/20 07:52 Protonix PO 40 mg DAILY [facility] Administration Senna/Docusate Sodium 1 tab 01/19/20 21:00 01/20/20 07:52 Senokot S PO 1 tab BID [facility] Administration Sodium Chloride 10 ml 01/13/20 21:00 01/20/20 07:54 Flush - Normal Saline IVF 10 ml Q12HR [facility] Administration Terazosin HCl 10 mg 01/17/20 21:00 01/19/20 20:33 Hytrin PO 10 mg HS [facility] Administration Venlafaxine HCl 75 mg 01/18/20 09:00 01/20/20 07:53 Effexor Xr PO 75 mg DAILY [facility] Administration - Exam General Appearance: NAD, awake alert Neck: no JVD Heart: RRR, no murmur, no gallops Respiratory: CTAB, no wheezes, no rales, no ronchi Gastrointestinal: soft, non-tender, non-distended, normal bowel sounds Extremities: no edema Psychiatric: normal affect, normal behavior, A&O x 3 Hosp A/P - Plan #COVID pneumonia extubated 01/16; currently breathing and satting well on 2L NC except when tries to move; will stop oxygen supplementation while limiting movement -onset of symptoms not known; will have to be in isolation for 10 days from the time of diagnosis (01/22) #cardiac arrest #NSVT #HFrEF NYHA II -Echo showing 30-35% -life vest placement pending -patient will require infirmary placement due to life vest; process started by [facility] disposition: infirmary pending
[2020-01-20] MEDS: Sodium Chloride 0.9% 1,000 ML IV SCH (17:11)
--- NOTE | 2020-01-20 19:58 | PDOC.EVN ---
Event Note - Event Note Event Note: Lovenox was held on 01/17 because warehouse shift supervisor nurse came to shift and was "worried " about using lovenox. I called the nurse after my call was over at around 8pm to request the contraindication to lovenox, which she could not provide, and requested that order is carried through. This was also conveyed to charge nurse at the time. After our discussion over the phone ended, the same nurse called the physician truer pinion and wheel to hold lovenox, and the physician who was likely unaware of her previous conversation with me, complied. Of note, I called the floor at 21:13 to discuss the incident with the charge nurse, who did mention that the nurse thought I was rude but did not mention that lovenox was eventually held. This incident was reported in [facility] as well.
[2020-01-20] MEDS: Terazosin HCl 5 MG CAP PO SCH (20:06)
[2020-01-20] MEDS: Melatonin 3 MG TAB PO SCH (20:06)
[2020-01-20] MEDS: Acetaminophen 500 MG TAB PO PRN (20:06)
[2020-01-21] MEDS: Acetaminophen 500 MG TAB PO PRN ×4 (02:05→21:21)
[2020-01-21] MEDS: Levothyroxine Sodium 50 MCG TAB PO SCH (05:37)
[2020-01-21] MEDS: Enoxaparin Sodium 100 MG/ML SYRINGE SC SCH (07:44)
[2020-01-21] MEDS: Amiodarone 200 MG TAB PO SCH ×2 (07:45→19:40)
[2020-01-21] MEDS: Dexamethasone 4 mg/ml Vial SLOW IVP SCH (07:45)
[2020-01-21] MEDS: Famotidine/PF 20 mg/2ml Vial SLOW IVP SCH (07:45)
[2020-01-21] MEDS: Senokot S 8.6-50 MG TAB PO SCH ×2 (07:45→19:40)
[2020-01-21] MEDS: Lisinopril 20 MG TAB PO SCH (07:46)
[2020-01-21] MEDS: Sodium Chloride 0.9% 1,000 ML IV SCH (07:47)
[2020-01-21] MEDS: Enoxaparin Sodium 40 MG/0.4 ML SYRINGE SC SCH (14:41)
[2020-01-21] MEDS: Venlafaxine HCl XR 75 MG CAP PO SCH (15:00)
--- NOTE | 2020-01-21 17:50 | PDOC.HOSPP ---
- Subjective Encounter Date: 01/21/20 Encounter Time: 09:00 Subjective: no overnight events. no additional episodes of bleeding. Has no complaints and requests to be discharged. [facility] bed - Objective Vital Signs & Weight: Vital Signs (12 hours) Temp Pulse Resp BP Pulse Ox 01/21/20 12:00 97.7 F 64 24 H 126/80 98 01/21/20 08:34 95 01/21/20 08:00 97.8 F 66 28 H 131/79 96 Weight Admit Weight 214 lb Weight 220 lb 11.2 oz Most Recent Monitor Data Heart Rate from ECG 101 NIBP 150/81 NIBP BP-Mean 104 Respiration from ECG 15 SpO2 80 I&O: 01/20/20 01/21/20 01/22/20 06:59 06:59 06:59 Intake Total 2890 2324 Output Total 1850 850 Balance 1040 1474 Result Diagrams: 01/20/20 06:07 01/20/20 06:07 Additional Labs: Accuchecks 01/21/20 01/21/20 01/20/20 12:18 05:09 20:15 POC Glucose 102 99 141 H 01/20/20 17:22 POC Glucose 133 H Hospitalist ROS - Review of Systems Constitutional: denies: fever, chills, sweats, weakness, malaise, other Respiratory: denies: cough, dry, shortness of breath, hemoptysis, SOB with excertion, pleuritic pain, sputum, wheezing, other Cardiovascular: denies: chest pain, palpitations, orthopnea, paroxysmal noc. dyspnea, edema, light headedness, other Gastrointestinal: denies: nausea, vomiting, abdominal pain, diarrhea, constipation, melena, hematochezia, other Genitourinary: denies: dysuria, frequency, incontinence, hematuria, retention, other - Medication Medications: Active Medications Generic Name Dose Route Start Last Admin Trade Name Freq PRN Reason Stop Dose Admin Acetaminophen 1,000 mg 01/20/20 18:50 01/21/20 14:53 Tylenol PO 1,000 mg Q6H PRN Administration Pain Amiodarone HCl 400 mg 01/18/20 21:00 01/21/20 07:45 Cordarone PO 400 mg BID MAYRA Administration Dexamethasone 6 mg 01/14/20 09:00 01/21/20 07:45 Decadron SLOW IVP 6 mg DAILY MAYRA Administration Enoxaparin Sodium 40 mg 01/21/20 09:00 01/21/20 14:41 Lovenox SC Not Given 0900 [facility] Diltiazem HCl 125 mg/ 125 mls @ 0 mls/hr 01/13/20 22:00 01/13/20 22:27 Miscellaneous Medication 1 IVPB 125 mls each/ Sodium Chloride INF MAYRA Administration Protocol As Directed Sodium Chloride 1,000 mls @ 50 mls/hr 01/17/20 09:30 01/21/20 07:47 Normal Saline 0.9% IV 1,000 mls .Q20H MAYRA Administration Levothyroxine Sodium 50 mcg 01/18/20 06:00 01/21/20 05:37 Synthroid PO 50 mcg 0600 MAYRA Administration Lisinopril 20 mg 01/18/20 09:00 01/21/20 07:46 Zestril PO 20 mg DAILY MAYRA Administration Melatonin 3 mg 01/19/20 21:00 01/20/20 20:06 Melatonin PO 3 mg HS MAYRA Administration Metoprolol Succinate 25 mg 01/17/20 21:00 01/21/20 07:46 Toprol Xl PO 25 mg BID MAYRA Administration Pantoprazole Sodium 40 mg 01/18/20 09:00 01/21/20 07:48 Protonix PO 40 mg DAILY MAYRA Administration Senna/Docusate Sodium 1 tab 01/19/20 21:00 01/21/20 07:45 Senokot S PO 1 tab BID MAYRA Administration Sodium Chloride 10 ml 01/13/20 21:00 01/21/20 08:12 Flush - Normal Saline IVF Not Given Q12HR MAYRA Terazosin HCl 10 mg 01/17/20 21:00 01/20/20 20:06 Hytrin PO 10 mg HS MAYRA Administration Venlafaxine HCl 75 mg 01/18/20 09:00 01/21/20 15:00 Effexor Xr PO 75 mg DAILY MAYRA Administration - Exam General Appearance: NAD, awake alert Neck: no JVD Heart: RRR, no murmur, no gallops, no rubs Respiratory: CTAB, no wheezes, no rales, no ronchi Gastrointestinal: soft, non-tender, non-distended, normal bowel sounds Extremities: no edema Psychiatric: normal affect, normal behavior, A&O x 3 Hosp A/P - Plan #COVID pneumonia extubated 01/16; currently breathing and satting well on 2L NC except when tries to move; will stop oxygen supplementation while limiting movement -onset of symptoms not known; will have to be in isolation for 10 days from the time of diagnosis (01/22) #gross bleeding -FOBT -ve -source likely urethra/bladder s/p higgins in context of anticoagulation; -if another episode of bleeding, ct abdomen without contrast #cardiac arrest #NSVT #HFrEF NYHA II -Echo showing 30-35% -life vest placement pending discharge -patient will require infirmary placement due to life vest disposition: infirmary pending
[2020-01-21] MEDS: Melatonin 3 MG TAB PO SCH (19:40)
[2020-01-21] MEDS: Famotidine 20 MG TAB PO SCH (19:40)
[2020-01-21] MEDS: Terazosin HCl 5 MG CAP PO SCH (19:40)
[2020-01-22] MEDS: Acetaminophen 500 MG TAB PO PRN ×2 (03:29→09:34)
[2020-01-22] MEDS: Levothyroxine Sodium 50 MCG TAB PO SCH (06:34)
[2020-01-22] MEDS: Senokot S 8.6-50 MG TAB PO SCH (08:13)
[2020-01-22] MEDS: Enoxaparin Sodium 40 MG/0.4 ML SYRINGE SC SCH (08:13)
[2020-01-22] MEDS: Lisinopril 20 MG TAB PO SCH (08:13)
[2020-01-22] MEDS: Dexamethasone 4 mg/ml Vial SLOW IVP SCH (08:13)
[2020-01-22] MEDS: Amiodarone 200 MG TAB PO SCH (08:13)
[2020-01-22] MEDS: Famotidine 20 MG TAB PO SCH (08:13)
[2020-01-22] MEDS: Venlafaxine HCl XR 75 MG CAP PO SCH (08:14)
[2020-01-22] MEDS: Sodium Chloride 0.9% 1,000 ML IV SCH (08:37)
[2020-01-22 11:41] VITALS: BP 107/69; TEMP 98.5
--- NOTE | 2020-01-22 15:29 | PDOC.HOSPP ---
- Subjective Encounter Date: 01/22/20 Encounter Time: 09:00 Subjective: per nurse, another episode of bleeding overnight likely due to irritation from chains considering no blood found in penile meatus or rectum. No other events. this morning feeling well and has no complaints. pending [facility] placement - Objective Vital Signs & Weight: Vital Signs (12 hours) Temp Pulse Resp BP Pulse Ox 01/22/20 11:40 98.5 F 64 20 107/69 95 01/22/20 08:35 94 L 01/22/20 08:15 98.3 F 60 20 114/74 94 L 01/22/20 03:36 98.5 F 56 L 28 H 122/74 96 Weight Admit Weight 214 lb Weight 221 lb Most Recent Monitor Data Heart Rate from ECG 101 NIBP 150/81 NIBP BP-Mean 104 Respiration from ECG 15 SpO2 80 I&O: 01/21/20 01/22/20 01/23/20 06:59 06:59 06:59 Intake Total 2324 937 Output Total 850 2030 Balance 1474 -1093 Result Diagrams: 01/20/20 06:07 01/20/20 06:07 Additional Labs: Accuchecks 01/22/20 01/22/20 01/21/20 11:40 06:47 19:51 POC Glucose 123 H 87 160 H 01/21/20 18:45 POC Glucose 139 H Hospitalist ROS - Review of Systems Constitutional: denies: chills, sweats Respiratory: denies: cough, dry, shortness of breath Cardiovascular: reports: chest pain. denies: palpitations, orthopnea Gastrointestinal: denies: nausea, vomiting, abdominal pain - Medication Medications: Active Medications Generic Name Dose Route Start Last Admin Trade Name Freq PRN Reason Stop Dose Admin Acetaminophen 1,000 mg 01/20/20 18:50 01/22/20 09:34 Tylenol PO 1,000 mg Q6H PRN Administration Pain Amiodarone HCl 400 mg 01/18/20 21:00 01/22/20 08:13 Cordarone PO 400 mg BID MAYRA Administration Dexamethasone 6 mg 01/14/20 09:00 01/22/20 08:13 Decadron SLOW IVP 6 mg DAILY MAYRA Administration Enoxaparin Sodium 40 mg 01/21/20 09:00 01/22/20 08:13 Lovenox SC 40 mg 0900 MAYRA Administration Diltiazem HCl 125 mg/ 125 mls @ 0 mls/hr 01/13/20 22:00 01/13/20 22:27 Miscellaneous Medication 1 IVPB 125 mls each/ Sodium Chloride INF MAYRA Administration Protocol As Directed Sodium Chloride 1,000 mls @ 50 mls/hr 01/17/20 09:30 01/22/20 08:37 Normal Saline 0.9% IV 1,000 mls .Q20H MAYRA Administration Levothyroxine Sodium 50 mcg 01/18/20 06:00 01/22/20 06:34 Synthroid PO 50 mcg 0600 MAYRA Administration Lisinopril 20 mg 01/18/20 09:00 01/22/20 08:13 Zestril PO 20 mg DAILY MAYRA Administration Melatonin 3 mg 01/19/20 21:00 01/21/20 19:40 Melatonin PO 3 mg HS MAYRA Administration Metoprolol Succinate 25 mg 01/17/20 21:00 01/22/20 08:13 Toprol Xl PO 25 mg BID MAYRA Administration Pantoprazole Sodium 40 mg 01/18/20 09:00 01/22/20 08:13 Protonix PO 40 mg DAILY MAYRA Administration Senna/Docusate Sodium 1 tab 01/19/20 21:00 01/22/20 08:13 Senokot S PO 1 tab BID MAYRA Administration Sodium Chloride 10 ml 01/13/20 21:00 01/22/20 08:14 Flush - Normal Saline IVF Not Given Q12HR MAYRA Terazosin HCl 10 mg 01/17/20 21:00 01/21/20 19:40 Hytrin PO 10 mg HS MAYRA Administration Venlafaxine HCl 75 mg 01/18/20 09:00 01/22/20 08:14 Effexor Xr PO 75 mg DAILY MAYRA Administration Hosp A/P - Plan #COVID pneumonia extubated 01/16; currently breathing and satting well on RA -onset of symptoms not known; will have to be in isolation for 10 days from the time of diagnosis (01/22) #gross bleeding -another episode overnight; patient has some lacerations on arms; per nurse who examined patient shortly after bleed likely source chains -FOBT -ve #cardiac arrest #NSVT #HFrEF NYHA II -Echo showing 30-35% -life vest placement pending discharge -patient will require infirmary placement due to life vest disposition: infirmary pending
[2020-01-22] MEDS ORDERED: Ibuprofen 800 MG TAB PO SCH (16:00)
--- NOTE | 2020-01-22 22:32 | DIS ---
DATE OF ADMISSION: 01/13/2020 DATE OF DISCHARGE: 01/22/2020 HOSPITAL COURSE: Mr. Clark is a 59-year-old male with a medical history of hypertension, coronary artery disease, who in shelter has suffered from chest pain and cardiac arrest. He required admission to the ICU and intubation. He was also diagnosed with COVID pneumonia. Cardiology was consulted and deemed it to be unlikely an acute coronary syndrome, but rather arrhythmia-induced cardiac arrest. The patient was also found to be in atrial fibrillation with RVR shortly after presentation. He was started on anticoagulation. Echocardiography showed a heart failure with reduced ejection fraction, requiring LifeVest placement. He was discharged home hemodynamically stable and complaining of diffuse chest pain due to CPR-induced musculoskeletal trauma. PHYSICAL EXAMINATION: VITAL SIGNS: Blood pressure 107/69, pulse 64, respiratory rate 20, oxygen saturation 95% on room air, and temperature 98.5. GENERAL: Lying comfortably in bed. Awake and alert. HEENT: Normocephalic and atraumatic. CARDIAC: Regular rate and rhythm. No murmurs, gallops, or rubs. LUNGS: Clear to auscultation bilaterally. No wheezing, rales, or rhonchi. ABDOMEN: Soft, nontender, and nondistended. Normal bowel sounds. PSYCHIATRIC: Proper mood and affect. Alert and oriented x3. MEDICATIONS: New medications; 1. Amiodarone 400 mg p.o. b.i.d. for four more days, then amiodarone 200 mg p.o. daily. 2. Lisinopril 20 mg p.o. daily. 3. Metoprolol succinate 25 mg p.o. b.i.d. Modified medications, no modified medications. Discontinued medications, no discontinued medications. Continued medications; 1. Albuterol. 2. Aspirin. 3. Diphenhydramine. 4. Fluticasone. 5. Haldol. 6. Mineral oil p.r.n. 7. Levothyroxine. 8. Loratadine. 9. Naprosyn. 10. Omeprazole. 11. Terazosin. 12. Venlafaxine. The patient was discharged to the [facility]. Job ID: [id number]
== END 2020-01-22 16:12 | DRG 208 ==
LOC: ERS 16:50 → CCU 17:55 → EEVIPCON 17:55 → 2SW 01-18 15:23
PROVIDERS: ADMIT Internal Medicine; ATTEND Internal Medicine
PROC: 5A1945Z Respiratory Ventilation, 24-96 Consecutive Hours (ICD-10-PCS; principal; 2020-01-13)
PROC: 8E0ZXY6 Isolation (ICD-10-PCS; 2020-01-13)
PROC: 0BH17EZ Insertion of Endotracheal Airway into Trachea, Via Natural or Artificial Opening (ICD-10-PCS; 2020-01-13)
DX: U07.1 COVID-19 (principal); J12.89 Other viral pneumonia; J96.00 Acute respiratory failure, unspecified whether with hypoxia or hypercapnia; I46.2 Cardiac arrest due to underlying cardiac condition; I50.23 Acute on chronic systolic (congestive) heart failure; I47.2 Ventricular tachycardia; I42.0 Dilated cardiomyopathy; I25.10 Atherosclerotic heart disease of native coronary artery without angina pectoris; I48.91 Unspecified atrial fibrillation; R07.89 Other chest pain; E03.9 Hypothyroidism, unspecified; B18.2 Chronic viral hepatitis C; F31.9 Bipolar disorder, unspecified; F25.9 Schizoaffective disorder, unspecified; J45.909 Unspecified asthma, uncomplicated; I11.0 Hypertensive heart disease with heart failure; H91.92 Unspecified hearing loss, left ear; E87.6 Hypokalemia; Z87.891 Personal history of nicotine dependence; I25.2 Old myocardial infarction; Z78.1 Physical restraint status; Z79.890 Hormone replacement therapy; Z79.899 Other long term (current) drug therapy; Z79.82 Long term (current) use of aspirin; Z79.51 Long term (current) use of inhaled steroids; S51.819A Laceration without foreign body of unspecified forearm, initial encounter; X58.XXXA Exposure to other specified factors, initial encounter
CPT/HCPCS: 31500; 36415; 36416; 36600; 51702; 70450; 71045; 74018; 80048; 80053; 81001; 82274; 82553; 82728; 82805; 83605; 83615; 83690; 83735; 83880; 84145; 84443; 84484; 85007; 85025; 85027; 85379; 86140; 87040; 93005; 93010; 93306; 94002; 94003; 96365; 96366; 96376; 99292; J0456; J0696; J1100; J1650; J2060; J2270; J2704; J3010; J3475; J3480; J3490; J7050; S0028; U0002